=== PATIENT | male | born 1960 | race Caucasian/White ===

== ENCOUNTER 2025-08-27 15:05 | Outpatient (REF) | payer OTHER, SELFPAY ==
--- OUTSIDE RECORDS SUMMARY | 2024-12-22 04:30 | XMS_ITS ---
Author Organization [facility] [address] Address [address] [place] [address] Care Team Providers Care Pallet Sorter Name Role Phone PERI FAJARDO Unavailable [phone] Medications Medication SIG (Take, Route, Frequency, Duration) Notes Start Date End Date Status OLANZapine 15 MG 1 tablet Orally Once a day; Duration: 90 days Active Sertraline HCl 100 MG 1.5 tablet Oral On ce a day; Duration: 90 days Active Advair HFA 115-21 MCG/ACT USE 2 INHALATIONS TWICE A DAY Active Trelegy Ellipta 200-62.5-25 MCG/ACT USE 1 INHALATION ORALLY DAILY; Duration: 90 Active OLANZapine 15 MG TAKE 1 TABLET ONCE D AILY; Duration: 90 Active Atorvastatin Calcium 40 MG 1 tablet Orally Once a day; Duration: 90 days Active Mounjaro 2.5 MG/0.5ML as directed Subcut aneous weekly; Duration: 30 days Active Permethrin 5 % 1 application, Massa ge the cream into the skin from the head to the soles of the feet, paying special attention to creases in the skin, hands, feet, between fingers and toes, underarms, and groin. Externally once; Duration: 1 days 12/05/2023 Not-Taking hydrOXYzine HCl 25 MG 1 tablet as needed for pruritis Orally three times a day; Duration: 10 days 12/05/2023 Not-Taking Sertraline HCl 100 MG TAKE 1 AND 1/2 TAB LETS ONCEDAILY; Duration: 90 Active Atorvastatin Calcium 40 MG TAKE 1 TABLET ONCE DAILY; Duration: 90 Active Vitamin B Complex - TAKE 1 TABLET BY FRANKY TH EVERY DAY FOR 90 DAYS; Duration: 90 Active Ozempic (1 MG/DOSE) 4 MG/3ML INJECT 1 MG SUBCUTANEOUSLY WEEKLY 30 DAYS; Duration: 30 Not-Taking Albuterol Sulfate HFA 108 (90 Base) MCG/ACT USE 1 INHALATION EVERY 4 HOURS NEEDED Active Albuterol Sulfate HFA 108 (90 Base) MCG/ACT 1 puff as needed shortness of breath/wheezing Inhalation every 4 hrs; Duration: 30 days 02/17/2024 Active ZyrTEC Allergy 10 MG 1 tablet Orally Onc e a day Not-Taking Flonase Allergy Relief 50 MCG/ACT 1 spray in each nostril Nasally Once a day Not-Taking Meloxicam 15 MG 1 tablet Orally Once a day; Duration: 21 day(s) Not-Larry ing Atorvastatin Calcium 10 mg TAKE 1 TABLET DAILY Active Social History Sex Assigned At : Social History Observation Description Sex Assigned At Male Encounters Encounter Location Date Provider Diagnosis [facility] [address] [place] [id number] 12/22/2024 PERI FAJARDO Hyperlipidemia, unspecified E78.5 ; Chronic obstructive pulmonary disease, unspecified J44.9 ; Nicotine dependence, unspecified, uncomplicated F17.200 ; Schizoaffective disorder, depressive type F25.1 ; Right lumbar radiculitis M54.16 and Right foot drop M21.371 Assessments Encounter Date Diagnosis (ICD Code) Assessment Notes Treatment Notes Treatment Clinical Notes Section Notes 12/22/2024 Hyperlipidemia, unspecified (ICD-10 - E78.5) Acute Concerns/Problem List: 12/22/2024 Overall he is well, Low-dose CT 05/2024 unremarkable Annual surveillance through [facility] lung cancer program no desire to quit still searching for Psych provider Stable on current medication regimen and we will help him out if he is in a pinch in terms of medication management temporarily Colorectal screening was completed this year, 5 yr surveilance Of note, some information is being carried forward from prior records for informational purposes only and is being cited so that efficiency, safety and quality of the patient's care is not compromised This note was prepared using voice recognition software and direct typing Please excuse inadvertent yard assistant or typing errors, or uncorrected word substitutions Although every attempt has been made by the provider to proofread this document, occasional misspellings and typographical errors may still be present Due to the previous pandemic, and the use of personal protective equipment (PPE) This may decrease voice recognition accuracy Inadvertent yard assistant errors may occur 12/22/2024 Chronic obstructive pulmonary disease, unspecified (ICD-10 - J44.9) Acute Concerns/Problem List: 12/22/2024 Overall he is well, Low-dose CT 05/2024 unremarkable Annual surveillance through [facility] lung cancer program no desire to quit still searching for Psych provider Stable on current medication regimen and we will help him out if he is in a pinch in terms of medication management temporarily Colorectal screening was completed this year, 5 yr surveilance Of note, some information is being carried forward from prior records for informational purposes only and is being cited so that efficiency, safety and quality of the patient's care is not compromised This note was prepared using voice recognition software and direct typing Please excuse inadvertent yard assistant or typing errors, or uncorrected word substitutions Although every attempt has been made by the provider to proofread this document, occasional misspellings and typographical errors may still be present Due to the previous pandemic, and the use of personal protective equipment (PPE) This may decrease voice recognition accuracy Inadvertent yard assistant errors may occur 12/22/2024 Nicotine dependence, unspecified, uncomplicated (ICD-10 - F17.200) Acute Concerns/Problem List: 12/22/2024 Overall he is well, Low-dose CT 05/2024 unremarkable Annual surveillance through [facility] lung cancer program no desire to quit still searching for Psych provider Stable on current medication regimen and we will help him out if he is in a pinch in terms of medication management temporarily Colorectal screening was completed this year, 5 yr surveilance Of note, some information is being carried forward from prior records for informational purposes only and is being cited so that efficiency, safety and quality of the patient's care is not compromised This note was prepared using voice recognition software and direct typing Please excuse inadvertent yard assistant or typing errors, or uncorrected word substitutions Although every attempt has been made by the provider to proofread this document, occasional misspellings and typographical errors may still be present Due to the previous pandemic, and the use of personal protective equipment (PPE) This may decrease voice recognition accuracy Inadvertent yard assistant errors may occur 12/22/2024 Schizoaffective disorder, depressive type (ICD-10 - F25.1) Acute Concerns/Problem List: 12/22/2024 Overall he is well, Low-dose CT 05/2024 unremarkable Annual surveillance through [facility] lung cancer program no desire to quit still searching for Psych provider Stable on current medication regimen and we will help him out if he is in a pinch in terms of medication management temporarily Colorectal screening was completed this year, 5 yr surveilance Of note, some information is being carried forward from prior records for informational purposes only and is being cited so that efficiency, safety and quality of the patient's care is not compromised This note was prepared using voice recognition software and direct typing Please excuse inadvertent yard assistant or typing errors, or uncorrected word substitutions Although every attempt has been made by the provider to proofread this document, occasional misspellings and typographical errors may still be present Due to the previous pandemic, and the use of personal protective equipment (PPE) This may decrease voice recognition accuracy Inadvertent yard assistant errors may occur 12/22/2024 Right lumbar radiculitis (ICD-10 - M54.16) Acute Concerns/Problem List: 12/22/2024 Overall he is well, Low-dose CT 05/2024 unremarkable Annual surveillance through [facility] lung cancer program no desire to quit still searching for Psych provider Stable on current medication regimen and we will help him out if he is in a pinch in terms of medication management temporarily Colorectal screening was completed this year, 5 yr surveilance Of note, some information is being carried forward from prior records for informational purposes only and is being cited so that efficiency, safety and quality of the patient's care is not compromised This note was prepared using voice recognition software and direct typing Please excuse inadvertent yard assistant or typing errors, or uncorrected word substitutions Although every attempt has been made by the provider to proofread this document, occasional misspellings and typographical errors may still be present Due to the previous pandemic, and the use of personal protective equipment (PPE) This may decrease voice recognition accuracy Inadvertent yard assistant errors may occur 12/22/2024 Right foot drop (ICD-10 - M21.371) Acute Concerns/Problem List: 12/22/2024 Overall he is well, Low-dose CT 05/2024 unremarkable Annual surveillance through [facility] lung cancer program no desire to quit still searching for Psych provider Stable on current medication regimen and we will help him out if he is in a pinch in terms of medication management temporarily Colorectal screening was completed this year, 5 yr surveilance Of note, some information is being carried forward from prior records for informational purposes only and is being cited so that efficiency, safety and quality of the patient's care is not compromised This note was prepared using voice recognition software and direct typing Please excuse inadvertent yard assistant or typing errors, or uncorrected word substitutions Although every attempt has been made by the provider to proofread this document, occasional misspellings and typographical errors may still be present Due to the previous pandemic, and the use of personal protective equipment (PPE) This may decrease voice recognition accuracy Inadvertent yard assistant errors may occur Plan Of Treatment Medication Medication Name Sig Start Date Stop Date Notes OLANZapine 15 MG 1 tablet Orally Once a day; Duration: 90 days Sertraline HCl 100 MG 1.5 tablet Oral On ce a day; Duration: 90 days Advair HFA 115-21 MCG/ACT USE 2 INHALATIONS TWICE A DAY Atorvastatin Calcium 40 MG 1 tablet Oral ly Once a day; Duration: 90 days Mounjaro 2.5 MG/0.5ML as directed Subcut aneous weekly; Duration: 30 days Next Appt Details Provider Name:PERI FAJARDO, 12/21/2025 08:30:00 AM, [address], [address], Progress Notes * CATHRYN PUCKETTDOB: 1 (65 yo M)Acc No.[id number]:12/22/2024 Progress Notes Patient: CATHRYN MESSER Provider: Popeye FAJARDO NP :1960 A ge:64 Y S ex:Male Date:12/22/2024 Address:[address] [place] [id number] Subjective: * Chief Complaints: * * HPI: C onstitutional: Patient is here for Chronic Disease Management follow-up visit Patient seen and examined. Full past medical history, social history, family history, allergies and current medications were reviewed and updated. Acute Concerns/Problem List: 12/22/2024 HCP Lisa [phone] He continues be looking for a psychiatrist Psychiatry conditions including depression, bipolar was chronically managed by psych Patient reports he is doing quite well and has a good mood and affect with no issues. Psychiatrist has since retired and will be taking over medication management in the interim now on sertraline/olanzipine Lipids managed on low dose statin, labs only review very slightly elevated triglycerides we discussed ASCVD risk He is still a current smoker, 3-4 cigs daily, overall smoking history it looks like 40+ years he had low dose chest CT done 05/2024, unremarakble, 1 yr surveilance @ [facility] he is s/p lumbar laminectomy with microdisectomy with [facility] 10/2021 back much improved He is not driving still his does all of the driving given his history of foot drop and lower extremity weakness Health maintenance COVID with 3 MRNA Vax Flu 2023 UTD, 07/2024 RSV, to get at pharm Colonoscopy 02/2024, [facility] Sam, 5 yr surveilance, prep wasnt optimal no fam hx of malignancy Comprehensive labs, April 2024 CBC is stable Hemoglobin A1c of 5.2 Electrolytes renal function LFTs are stable Total cholesterol 138, LDL 70, HDL 44, triglycerides 124 PSA 0.4 Vitamin B12 TSH 6.4, T4?, Previous TSH 3.9. * ROS: A ll Other Systems: Review of Systems (ROS) A ll others negative except those mentioned in HPI. * Medical History: * Medications: T aking Mounjaro 2.5 MG/0.5ML Solution Pen-injector as directed Subcutaneous weekly , Taking Atorvastatin Calcium 40 MG Tablet 1 tablet Orally Once a day , Taking Advair HFA 115-21 MCG/ACT Aerosol USE 2 INHALATIONS TWICE A DAY , Taking Atorvastatin Calcium 10 mg Tablet TAKE 1 TABLET DAILY , Taking Albuterol Sulfate HFA 108 (90 Base) MCG/ACT Aerosol Solution USE 1 INHALATION EVERY 4 HOURS NEEDED , Taking Albuterol Sulfate HFA 108 (90 Base) MCG/ACT Aerosol Solution 1 puff as needed shortness of breath/wheezing Inhalation every 4 hrs , Taking Vitamin B Complex - Tablet TAKE 1 TABLET BY MOUTH EVERY DAY FOR 90 DAYS , Taking Atorvastatin Calcium 40 MG Tablet TAKE 1 TABLET ONCE DAILY , Taking Sertraline HCl 100 MG Tablet TAKE 1 AND 1/2 TABLETS ONCEDAILY , Taking Trelegy Ellipta 200-62.5-25 MCG/ACT Aerosol Powder Breath Activated USE 1 INHALATION ORALLY DAILY , Taking OLANZapine 15 MG Tablet TAKE 1 TABLET ONCE DAILY , Not-Taking ZyrTEC Allergy 10 MG Tablet 1 tablet Orally Once a day , Not-Taking Flonase Allergy Relief 50 MCG/ACT Suspension 1 spray in each nostril Nasally Once a day , Not-Taking Meloxicam 15 MG Tablet 1 tablet Orally Once a day , Not-Taking Ozempic (1 MG/DOSE) 4 MG/3ML Solution Pen-injector INJECT 1 MG SUBCUTANEOUSLY WEEKLY 30 DAYS , Not-Taking Permethrin 5 % Cream 1 application, Massage the cream into the skin from the head to the soles of the feet, paying special attention to creases in the skin, hands, feet, between fingers and toes, underarms, and groin. Externally once , Not-Taking hydrOXYzine HCl 25 MG Tablet 1 tablet as needed for pruritis Orally three times a day Objective: * Vitals: * Examination: G eneral Examination: GENERAL APPEARANCE: i n no acute distress, well developed, well nourished. H EAD: n ormocephalic, atraumatic. E YES: p upils equal, round, reactive to light and accommodation. E ARS: n ormal. O RAL CAVITY: m ucosa moist. T HROAT: c lear. N YADY/THYROID: n yady supple, full range of motion, no cervical lymphadenopathy. S KIN: n o suspicious lesions, warm and dry. H EART: n o murmurs, regular rate and rhythm, S1, S2 normal. L UNGS: c lear to auscultation bilaterally. A BDOMEN: n ormal, bowel sounds present, soft, nontender, nondistended. E XTREMITIES: n o clubbing, cyanosis, or edema. N EUROLOGIC: n onfocal, motor strength normal upper and lower extremities, sensory exam intact. Assessment: * Assessment: 1. H yperlipidemia, unspecified - E78.5 2 . C hronic obstructive pulmonary disease, unspecified - J44.9 3 . N icotine dependence, unspecified, uncomplicated - F17.200 4 . S chizoaffective disorder, depressive type - F25.1 5. R ight lumbar radiculitis - M54.16 6 . R ight foot drop - M21.371? Acute Concerns/Problem List: 12/22/2024 Overall he is well, Low-dose CT 05/2024 unremarkable Annual surveillance through [facility] lung cancer program no desire to quit still searching for Psych provider Stable on current medication regimen and we will help him out if he is in a pinch in terms of medication management temporarily Colorectal screening was completed this year, 5 yr surveilance Of note, some information is being carried forward from prior records for informational purposes only and is being cited so that efficiency, safety and quality of the patient's care is not compromised This note was prepared using voice recognition software and direct typing Please excuse inadvertent yard assistant or typing errors, or uncorrected word substitutions Although every attempt has been made by the provider to proofread this document, occasional misspellings and typographical errors may still be present Due to the previous pandemic, and the use of personal protective equipment (PPE) This may decrease voice recognition accuracy Inadvertent yard assistant errors may occur. Plan: * Treatment: 2. C hronic obstructive pulmonary disease, unspecified Start Mounjaro Solution Pen-injector, 2.5 MG/0.5ML, as directed, Subcutaneous, weekly, 30 days, 4 Pen Needle, Refills 6; S tart Atorvastatin Calcium Tablet, 40 MG, 1 tablet, Orally, Once a day, 90 days, 90 Tablet, Refills 3; R efill Sertraline HCl Tablet, 100 MG, 1.5 tablet, Oral, Once a day, 90 days, 135 Tablet, Refills 3; R efill OLANZapine Tablet, 15 MG, 1 tablet, Orally, Once a day, 90 days, 90 Tablet, Refills 3. * Procedure Codes: 9 9199 NO SHOW OFFICE VISIT * Images: Billing Information: * Visit Code: * Procedure Codes: 75157 NO SHOW OFFICE VISIT. Care Plan Details* * Electronic signature of SABAS FAJARDO on 08/27/2025 at 04:43 PM EDT Sign off status: Pending * Provider: Popeye FAJARDO NP Date: 0 12/22/2024 Generated for Scott senior/Luis Alberto/Fredy on: 1 04:43 PM EDT History and Physical Notes * HPI (History of Present Illness) Category Sub-Category Detail Notes Category Not es Constitutional Patient is here for Chronic Disease Management follow-up visit Patient seen and examined. Full past medical history, social history, family history, allergies and current medications were reviewed and updated. Acute Concerns/Problem List: 12/22/2024 HCP Lisa [phone] He continues be looking for a psychiatrist Psychiatry conditions including depression, bipolar was chronically managed by psych Patient reports he is doing quite well and has a good mood and affect with no issues. Psychiatrist has since retired and will be taking over medication management in the interim now on sertraline/olanzipine Lipids managed on low dose statin, labs only review very slightly elevated triglycerides we discussed ASCVD risk He is still a current smoker, 3-4 cigs daily, overall smoking history it looks like 40+ years he had low dose chest CT done 05/2024, unremarakble, 1 yr surveilance @ [facility] he is s/p lumbar laminectomy with microdisectomy with [facility] 10/2021 back much improved He is not driving still his does all of the driving given his history of foot drop and lower extremity weakness Health maintenance COVID with 3 MRNA Vax Flu 2023 UTD, 07/2024 RSV, to get at pharm Colonoscopy 02/2024, [facility] Sam, 5 yr surveilance, prep wasnt optimal no fam hx of malignancy Comprehensive labs, April 2024 CBC is stable Hemoglobin A1c of 5.2 Electrolytes renal function LFTs are stable Total cholesterol 138, LDL 70, HDL 44, triglycerides 124 PSA 0.4 Vitamin B12 TSH 6.4, T4?, Previous TSH 3.9 Examination Category Sub-Category Detail Notes Category Not es General Examination GENERAL APPEARANCE: in no ac native distress, well developed, well nourished HEAD: normocephalic, atrau matic EYES: pupils equal, round, reactive to light and accommodation EARS: normal THROAT: clear NECK/THYROID: neck supple, full ra nge of motion, no cervical lymphadenopathy HEART: no murmurs, regular rate and rhythm, S1, S2 normal LUNGS: clear to auscultatio n bilaterally ABDOMEN: normal, bowel sounds present, soft, nontender, nondistended NEUROLOGIC: nonfocal, motor stre ngth normal upper and lower extremities, sensory exam intact SKIN: no suspicious lesion s, warm and dry EXTREMITIES: no clubbing, cyanosi s, or edema ORAL CAVITY: mucosa moist
--- OUTSIDE RECORDS SUMMARY | 2025-05-28 05:30 | XMS_ITS ---
Author Organization [facility] [address] Address [address] [place] [address] Care Team Providers Care Blanket Inspector Name Role Phone PERI FAJARDO Unavailable [phone] MAYRASHANNON FOOTE Unavailable [phone] Medications Medication SIG (Take, Route, Frequency, Duration) Notes Start Date End Date Status Atorvastatin Calcium 10 mg TAKE 1 TABLET DAILY Not-Taki ng Meloxicam 15 MG 1 tablet Orally Once a day; Duration: 21 day(s) Not-Larry ing Ozempic (1 MG/DOSE) 4 MG/3ML INJECT 1 MG SUBCUTANEOUSLY WEEKLY 30 DAYS; Duration: 30 Not-Taking Permethrin 5 % 1 application, Massa ge [...] a day; Duration: 10 days 12/05/2023 Not-Taking OLANZapine 15 MG TAKE 1 TABLET ONCE D AILY; Duration: 90 Active Atorvastatin Calcium 40 MG TAKE 1 TABLET BY MOUTH EVERY DAY; Duration: 90 Active Albuterol Sulfate HFA 108 (90 Base) MCG/ACT INHALE 1 PUFF EVERY 4 HOURS NEEDED FOR WHEEZE FOR SHORTNESS OF BREATH; Duration: 30 Active ZyrTEC Allergy 10 MG 1 tablet Orally Onc e a day Active Flonase Allergy Relief 50 MCG/ACT 1 spray in each nostril Nasally Once a day Active Trelegy Ellipta 200-62.5-25 MCG/ACT USE 1 INHALATION ORALLY DAILY; Duration: 90 Active Advair HFA 115-21 MCG/ACT USE 2 INHALATIONS TWICE A DAY Active Vitamin E Active Vitamin B Complex - TAKE 1 TABLET BY FRANKY TH EVERY DAY FOR 90 DAYS; Duration: 90 Active Sertraline HCl 100 MG TAKE 1 AND 1/2 TAB LETS ONCEDAILY; Duration: 90 Active Mounjaro 2.5 MG/0.5ML as directed Subcut aneous weekly; Duration: 30 days Active Atorvastatin Calcium 40 MG 1 tablet Orally Once a day; Duration: 90 days Active Sertraline HCl 100 MG 1.5 tablet Oral On ce a day; Duration: 90 days Active OLANZapine 15 MG 1 tablet Orally Once a day; Duration: 90 days Active Social History Sex Assigned At : Social History Observation Description Sex Assigned At Male Encounters Encounter Location Date Provider Diagnosis [facility] [address] [facility] [address] [place] [address] 05/28/2025 SHANNON HOPSON Plan Of Treatment Next Appt Details Provider Name:PERI FAJARDO, 12/21/2025 08:30:00 AM, [address] [facility], [facility] [address], [place], [address], Progress Notes * CATHRYN PUCKETTDOB: 1 (65 yo M)Acc No.[id number]:05/28/2025 CPE Patient: CATHRYN MESSER Provider: Breanne HOPSON :1960 A ge:64 Y S ex:Male Date:05/28/2025 Address:[address] [place], [place] [id number] Subjective: * Chief Complaints: * * Medical History: * Medications: T aking Mounjaro 2.5 MG/0.5ML Solution Pen-injector as directed Subcutaneous weekly , Taking Atorvastatin Calcium 40 MG Tablet 1 tablet Orally Once a day , Taking Sertraline HCl 100 MG Tablet 1.5 tablet Oral Once a day , Taking OLANZapine 15 MG Tablet 1 tablet Orally Once a day , Taking Advair HFA 115-21 MCG/ACT Aerosol USE 2 INHALATIONS TWICE A DAY , Taking Vitamin E , Taking Vitamin B Complex - Tablet TAKE 1 TABLET BY MOUTH EVERY DAY FOR 90 DAYS , Taking Sertraline HCl 100 MG Tablet TAKE 1 AND 1/2 TABLETS ONCEDAILY , Taking Trelegy Ellipta 200-62.5-25 MCG/ACT Aerosol Powder Breath Activated USE 1 INHALATION ORALLY DAILY , Taking OLANZapine 15 MG Tablet TAKE 1 TABLET ONCE DAILY , Taking Atorvastatin Calcium 40 MG Tablet TAKE 1 TABLET BY MOUTH EVERY DAY , Taking Albuterol Sulfate HFA 108 (90 Base) MCG/ACT Aerosol Solution INHALE 1 PUFF EVERY 4 HOURS NEEDED FOR WHEEZE FOR SHORTNESS OF BREATH , Taking ZyrTEC Allergy 10 MG Tablet 1 tablet Orally Once a day , Taking Flonase Allergy Relief 50 MCG/ACT Suspension 1 spray in each nostril Nasally Once a day , Not- Taking Atorvastatin Calcium 10 mg Tablet TAKE 1 TABLET DAILY , Not-Taking Meloxicam 15 MG Tablet 1 [...] three times a day Objective: * Vitals: Assessment: Plan: * Treatment: * Images: Billing Information: * Visit Code: * Procedure Codes: Care Plan Details* * Electronic signature of YUNIER HOPSON PA-C, [id number] on 08/27/2025 at 04:43 PM EDT Sign off status: Pending * Provider: Breanne HOPSON Date: 05/28/2025 Generated for Scott senior/Luis Alberto/Fredy on: 04:43 PM EDT
--- OUTSIDE RECORDS SUMMARY | 2025-08-25 11:30 | XMS_ITS ---
Author Organization [facility] Address [address] [place] [address] Care Team Providers Care Cranberry Grower Name Role Phone PERI FAJARDO Unavailable [phone] Allergies No Known Allergies REASON FOR VISIT pt is here for f/u visit with no acute concerns or issues Medications Medication SIG (Take, Route, Frequency, Duration) Notes Start Date End Date Status hydrOXYzine HCl 25 MG 1 tablet as needed for pruritis Orally three times a day; Duration: 10 days 12/05/2023 Not-Taking Permethrin 5 % 1 application, Massa ge the cream into the skin from the head to the soles of the feet, paying special attention to creases in the skin, hands, feet, between fingers and toes, underarms, and groin. Externally once; Duration: 1 days 12/05/2023 Not-Taking Atorvastatin Calcium 40 MG 1 tablet Orally Once a day; Duration: 90 days Active Sertraline HCl 100 MG 1.5 tablet Oral On ce a day; Duration: 90 days Active Mounjaro 2.5 MG/0.5ML as directed Subcut aneous weekly; Duration: 30 days Active Ozempic (1 MG/DOSE) 4 MG/3ML INJECT 1 MG SUBCUTANEOUSLY WEEKLY 30 DAYS; Duration: 30 Not-Taking Meloxicam 15 MG 1 tablet Orally Once a day; Duration: 21 day(s) Not-Larry ing Atorvastatin Calcium 10 mg TAKE 1 TABLET DAILY Not-Taki ng ZyrTEC Allergy 10 MG 1 tablet Orally Onc e a day Not-Taking Mounjaro 2.5 MG/0.5ML inject 2 Subcutane ous once a week; Duration: 30 days 06/14/2025 Active Albuterol Sulfate HFA 108 (90 Base) MCG/ACT INHALE 1 PUFF EVERY 4 HOURS NEEDED FOR WHEEZE FOR SHORTNESS OF BREATH; Duration: 30 Active Trelegy Ellipta 200-62.5-25 MCG/ACT USE 1 INHALATION ORALLY DAILY; Duration: 90 Active Vitamin B Complex - TAKE 1 TABLET BY FRANKY TH EVERY DAY FOR 90 DAYS; Duration: 90 Active Vitamin E Active Flonase Allergy Relief 50 MCG/ACT 1 spray in each nostril Nasally Once a day Active OLANZapine 15 MG TAKE 1 TABLET ONCE D AILY; Duration: 90 Active Sertraline HCl 100 MG TAKE 1 AND 1/2 TAB LETS ONCEDAILY; Duration: 90 Active Advair HFA 115-21 MCG/ACT USE 2 INHALATIONS TWICE A DAY Active Famotidine 20 MG 1 tablet at bedtime as needed Orally Once a day Active Atorvastatin Calcium 40 MG TAKE 1 TABLET BY MOUTH EVERY DAY; Duration: 90 Active OLANZapine 15 MG 1 tablet Orally Once a day; Duration: 90 days Active Social History Tobacco Use: Social History Observation Description Date Details (start date - stop date) Current Smoker NA - NA Sex Assigned At : Social History Observation Description Sex Assigned At Male Tobacco Use/Smoking Question Answer Notes Are you a current smoker How often do you smoke cigarettes? every day How many cigarettes a day do you smoke? - Vital Signs Blood pressure systolic 132 mm Hg 08/25/20 25 Blood pressure diastolic 84 mm Hg 025 Heart Rate 93 /min 2025 Height 66 in 2025 Weight 151 lbs 2025 BMI 24.37 kg/m2 2025 Oximetry 97 % 2025 Encounters Encounter Location Date Provider Diagnosis [facility] [address] [address] 2025 PERI FAJARDO Hyperlipidemia, unspecified E78.5 ; Chronic obstructive pulmonary disease, unspecified J44.9 ; Schizoaffective disorder, depressive type F25.1 ; Nicotine dependence, unspecified, uncomplicated F17.200 ; Right lumbar radiculitis M54.16 ; Carpal tunnel syndrome of left wrist G56.02 ; Vitamin B12 deficiency anemia, unspecified D51.9 ; Abnormal TSH R79.89 and Encounter for examination of blood pressure without abnormal findings Z01.30 Assessments Encounter Date Diagnosis (ICD Code) Assessment Notes Treatment Notes Treatment Clinical Notes Section Notes 2025 Hyperlipidemia, unspecified (ICD-10 - E78.5) Acute Concerns/Problem List: 2025 Chronic conditions are stable mental health is stable Low-dose CT 05/2025 unremarkable Annual surveillance through [facility] lung cancer program no desire to quit smoking still searching for Psych provider Stable on current medication regimen and We are prescribing these medicines in the interim Colorectal screening was completed this year, 5 yr surveilance Of note, some information is being carried forward from prior records for informational purposes only and is being cited so that efficiency, safety and quality of the patient's care is not compromised This note was prepared using voice recognition software and direct typing Please excuse inadvertent information architect or typing errors, or uncorrected word substitutions Although every attempt has been made by the provider to proofread this document, occasional misspellings and typographical errors may still be present Due to the previous pandemic, and the use of personal protective equipment (PPE) This may decrease voice recognition accuracy Inadvertent information architect errors may occur 2025 Chronic obstructive pulmonary disease, unspecified (ICD-10 - J44.9) Acute Concerns/Problem List: 2025 Chronic conditions are stable mental health is stable Low-dose CT 05/2025 unremarkable Annual surveillance through [facility] lung cancer program no desire to quit smoking still searching for Psych provider Stable on current medication regimen and We are prescribing these medicines in the interim Colorectal screening was completed this year, 5 yr surveilance Of note, some information is being carried forward from prior records for informational purposes only and is being cited so that efficiency, safety and quality of the patient's care is not compromised This note was prepared using voice recognition software and direct typing Please excuse inadvertent information architect or typing errors, or uncorrected word substitutions Although every attempt has been made by the provider to proofread this document, occasional misspellings and typographical errors may still be present Due to the previous pandemic, and the use of personal protective equipment (PPE) This may decrease voice recognition accuracy Inadvertent information architect errors may occur 2025 Schizoaffective disorder, depressive type (ICD-10 - F25.1) Acute Concerns/Problem List: 2025 Chronic conditions are stable mental health is stable Low-dose CT 05/2025 unremarkable Annual surveillance through [facility] lung cancer program no desire to quit smoking still searching for Psych provider Stable on current medication regimen and We are prescribing these medicines in the interim Colorectal screening was completed this year, 5 yr surveilance Of note, some information is being carried forward from prior records for informational purposes only and is being cited so that efficiency, safety and quality of the patient's care is not compromised This note was prepared using voice recognition software and direct typing Please excuse inadvertent information architect or typing errors, or uncorrected word substitutions Although every attempt has been made by the provider to proofread this document, occasional misspellings and typographical errors may still be present Due to the previous pandemic, and the use of personal protective equipment (PPE) This may decrease voice recognition accuracy Inadvertent information architect errors may occur 2025 Nicotine dependence, unspecified, uncomplicated (ICD-10 - F17.200) Acute Concerns/Problem List: 2025 Chronic conditions are stable mental health is stable Low-dose CT 05/2025 unremarkable Annual surveillance through [facility] lung cancer program no desire to quit smoking still searching for Psych provider Stable on current medication regimen and We are prescribing these medicines in the interim Colorectal screening was completed this year, 5 yr surveilance Of note, some information is being carried forward from prior records for informational purposes only and is being cited so that efficiency, safety and quality of the patient's care is not compromised This note was prepared using voice recognition software and direct typing Please excuse inadvertent information architect or typing errors, or uncorrected word substitutions Although every attempt has been made by the provider to proofread this document, occasional misspellings and typographical errors may still be present Due to the previous pandemic, and the use of personal protective equipment (PPE) This may decrease voice recognition accuracy Inadvertent information architect errors may occur 2025 Right lumbar radiculitis (ICD-10 - M54.16) Acute Concerns/Problem List: 2025 Chronic conditions are stable mental health is stable Low-dose CT 05/2025 unremarkable Annual surveillance through [facility] lung cancer program no desire to quit smoking still searching for Psych provider Stable on current medication regimen and We are prescribing these medicines in the interim Colorectal screening was completed this year, 5 yr surveilance Of note, some information is being carried forward from prior records for informational purposes only and is being cited so that efficiency, safety and quality of the patient's care is not compromised This note was prepared using voice recognition software and direct typing Please excuse inadvertent information architect or typing errors, or uncorrected word substitutions Although every attempt has been made by the provider to proofread this document, occasional misspellings and typographical errors may still be present Due to the previous pandemic, and the use of personal protective equipment (PPE) This may decrease voice recognition accuracy Inadvertent information architect errors may occur 2025 Carpal tunnel syndrome of left wrist (ICD-10 - G56.02) Acute Concerns/Problem List: 2025 Chronic conditions are stable mental health is stable Low-dose CT 05/2025 unremarkable Annual surveillance through [facility] lung cancer program no desire to quit smoking still searching for Psych provider Stable on current medication regimen and We are prescribing these medicines in the interim Colorectal screening was completed this year, 5 yr surveilance Of note, some information is being carried forward from prior records for informational purposes only and is being cited so that efficiency, safety and quality of the patient's care is not compromised This note was prepared using voice recognition software and direct typing Please excuse inadvertent information architect or typing errors, or uncorrected word substitutions Although every attempt has been made by the provider to proofread this document, occasional misspellings and typographical errors may still be present Due to the previous pandemic, and the use of personal protective equipment (PPE) This may decrease voice recognition accuracy Inadvertent information architect errors may occur 2025 Vitamin B12 deficiency anemia, unspecified (ICD-10 - D51.9) Acute Concerns/Problem List: 2025 Chronic conditions are stable mental health is stable Low-dose CT 05/2025 unremarkable Annual surveillance through [facility] lung cancer program no desire to quit smoking still searching for Psych provider Stable on current medication regimen and We are prescribing these medicines in the interim Colorectal screening was completed this year, 5 yr surveilance Of note, some information is being carried forward from prior records for informational purposes only and is being cited so that efficiency, safety and quality of the patient's care is not compromised This note was prepared using voice recognition software and direct typing Please excuse inadvertent information architect or typing errors, or uncorrected word substitutions Although every attempt has been made by the provider to proofread this document, occasional misspellings and typographical errors may still be present Due to the previous pandemic, and the use of personal protective equipment (PPE) This may decrease voice recognition accuracy Inadvertent information architect errors may occur 2025 Abnormal TSH (ICD-10 - R79.89) Acute Concerns/Problem List: 2025 Chronic conditions are stable mental health is stable Low-dose CT 05/2025 unremarkable Annual surveillance through [facility] lung cancer program no desire to quit smoking still searching for Psych provider Stable on current medication regimen and We are prescribing these medicines in the interim Colorectal screening was completed this year, 5 yr surveilance Of note, some information is being carried forward from prior records for informational purposes only and is being cited so that efficiency, safety and quality of the patient's care is not compromised This note was prepared using voice recognition software and direct typing Please excuse inadvertent information architect or typing errors, or uncorrected word substitutions Although every attempt has been made by the provider to proofread this document, occasional misspellings and typographical errors may still be present Due to the previous pandemic, and the use of personal protective equipment (PPE) This may decrease voice recognition accuracy Inadvertent information architect errors may occur 2025 Encounter for examination of blood pressure without abnormal findings (ICD-10 - Z01.30) Acute Concerns/Problem List: 2025 Chronic conditions are stable mental health is stable Low-dose CT 05/2025 unremarkable Annual surveillance through [facility] lung cancer program no desire to quit smoking still searching for Psych provider Stable on current medication regimen and We are prescribing these medicines in the interim Colorectal screening was completed this year, 5 yr surveilance Of note, some information is being carried forward from prior records for informational purposes only and is being cited so that efficiency, safety and quality of the patient's care is not compromised This note was prepared using voice recognition software and direct typing Please excuse inadvertent information architect or typing errors, or uncorrected word substitutions Although every attempt has been made by the provider to proofread this document, occasional misspellings and typographical errors may still be present Due to the previous pandemic, and the use of personal protective equipment (PPE) This may decrease voice recognition accuracy Inadvertent information architect errors may occur Plan Of Treatment Medication Medication Name Sig Start Date Stop Date Notes Atorvastatin Calcium 40 MG 1 tablet Oral ly Once a day; Duration: 90 days Sertraline HCl 100 MG 1.5 tablet Oral On ce a day; Duration: 90 days Mounjaro 2.5 MG/0.5ML as directed Subcut aneous weekly; Duration: 30 days Advair HFA 115-21 MCG/ACT USE 2 INHALATIONS TWICE A DAY OLANZapine 15 MG 1 tablet Orally Once a day; Duration: 90 days Next Appt Details Provider Name:PERI FAJARDO, 12/21/2025 08:30:00 AM, [address], [address], [place], [address], Progress Notes * CATHRYN PUCKETTDOB: (65 yo M)Acc No.[id number]:[id number] Progress Notes Patient: CATHRYN MESSER Provider: Popeye FAJARDO NP :1960 A ge:65 Y S ex:Male Date:2025 Address:[address] [place], [place] [id number] Subjective: * Chief Complaints: * 1 . Pt is here for f/u visit with no acute concerns or issues. * HPI: C onstitutional: Patient is here today for a Chronic Disease Management Follow-up Visit Patient seen and examined. Full past medical history, social history, family history, allergies and current medications were reviewed and updated. Acute Concerns/Problem List: 2025 HCP Lisa [phone] Cathryn is overall doing quite well with no acute concerns today Hx of depression, bipolar was chronically managed by [facility] mental health stable, good mood and affect with no issues. Psychiatrist (Sharlene Mazariegos) has since retired and i agreed to take over med management in the interim now on sertraline/olanzipine Lipids managed on low dose statin, labs only review very slightly elevated triglycerides we discussed ASCVD risk He is still a current smoker, 3-4 cigs daily, overall smoking history it looks like 40+ years he had low dose chest CT done 05/2025, unremarakble, 1 yr surveilance @ [facility] he is s/p lumbar laminectomy with microdisectomy with [facility] 10/2021 back much improved He is not driving still his does all of the driving given his history of foot drop and lower extremity weakness Patient wants to loose weight. Health maintenance COVID with 3 MRNA Vax Flu 2024 UTD RSV, 07/2024 Colonoscopy 02/2024, GI [facility], 5 yr surveilance, prep wasnt optimal no fam hx of malignancy Comprehensive labs April 2025 CBC mostly stable Renal function electrolytes and LFTs are stable Total cholesterol 147, LDL 88, HDL 41, triglycerides 92 Vitamin D 16 Free T4, 1.07 Free T3, 317 TSH 4.16 Hemoglobin A1c of 5.8 PSA 0.36 Vitamin B12 385 UA unremarkable. * ROS: A ll Other Systems: Review of Systems (ROS) A ll others negative except those mentioned in HPI. * Medical History: D epression, Seasonal allergies, Hyperlipidemia. * Surgical History: D enies Past Surgical History. * Hospitalization/Major Diagno stic Procedure: D enies Past Hospitalization. * Family History: F ather: . M other: alive. 1 brother(s) , 2 sister(s) . 1 son(s) . . * Social History: T obacco Use: T obacco Use/Smoking A re you a c urrent smoker, H ow often do you smoke cigarettes? e very day, H ow many cigarettes a day do you smoke? 2 -30. * Medications: T aking Sertraline HCl 100 MG Tablet TAKE 1 AND 1/2 TABLETS ONCEDAILY , Taking OLANZapine 15 MG Tablet TAKE 1 TABLET ONCE DAILY , Taking Atorvastatin Calcium 40 MG Tablet TAKE 1 TABLET BY MOUTH EVERY DAY , Taking Mounjaro 2.5 MG/0.5ML Solution Pen-injector as directed Subcutaneous weekly , Taking Atorvastatin Calcium 40 MG Tablet 1 tablet Orally Once a day , Taking Sertraline HCl 100 MG Tablet 1.5 tablet Oral Once a day , Taking OLANZapine 15 MG Tablet 1 tablet Orally Once a day , Taking Advair HFA 115-21 MCG/ACT Aerosol USE 2 INHALATIONS TWICE A DAY , Taking Famotidine 20 MG Tablet 1 tablet at bedtime as needed Orally Once a day , Taking Vitamin E , Taking Vitamin B Complex - Tablet TAKE 1 TABLET BY MOUTH EVERY DAY FOR 90 DAYS , Taking Trelegy Ellipta 200-62.5-25 MCG/ACT Aerosol Powder Breath Activated USE 1 INHALATION ORALLY DAILY , Taking Albuterol Sulfate HFA 108 (90 Base) MCG/ACT Aerosol Solution INHALE 1 PUFF EVERY 4 HOURS NEEDED FOR WHEEZE FOR SHORTNESS OF BREATH , Taking Flonase Allergy Relief 50 MCG/ACT Suspension 1 spray in each nostril Nasally Once a day , Taking Mounjaro 2.5 MG/0.5ML Solution Auto-injector inject 2 Subcutaneous once a week , Not-Taking ZyrTEC Allergy 10 MG Tablet 1 tablet Orally Once a day , Not-Taking Atorvastatin Calcium 10 mg Tablet TAKE 1 [...] for pruritis Orally three times a day , Medication List reviewed and reconciled with the patient * Allergies: N .K.D.A. Objective: * Vitals: H R:93/min, BP:132/84mm Hg, Wt:151lbs, BMI:24.37Index, Ht: 66 in, Oxygen sat %:97%. * Examination: G eneral Examination: GENERAL APPEARANCE: i n no acute distress, well developed, well nourished. H EAD: n ormocephalic, atraumatic. E YES: p upils equal, round, reactive to light and accommodation. E ARS: n ormal. O RAL CAVITY: m ucosa moist. T HROAT: c lear. N YINKA/THYROID: n yinka supple, full range of motion, no cervical lymphadenopathy. S KIN: n o suspicious lesions, warm and dry. H EART: n o murmurs, regular rate and rhythm, S1, S2 normal. L UNGS: c lear to auscultation bilaterally. A BDOMEN: n ormal, bowel sounds present, soft, nontender, nondistended. M USCULOSKELETAL: l eft elbow tenderness going down to fingers, Phalens test is positive for Carpal tunnel syndrome, Elbow flexion pain. E XTREMITIES: n o clubbing, cyanosis, or edema. N EUROLOGIC: n onfocal, motor strength normal upper and lower extremities, sensory exam intact. Assessment: * Assessment: 1. H yperlipidemia, unspecified - E78.5 2 . C hronic obstructive pulmonary disease, unspecified - J44.9 3 . S chizoaffective disorder, depressive type - F25.1 4 . N icotine dependence, unspecified, uncomplicated - F17.200 5. R ight lumbar radiculitis - M54.16 6 . C arpal tunnel syndrome of left wrist - G56.02 7 . V itamin B12 deficiency anemia, unspecified - D51.9 ? 8 . A bnormal TSH - R79.89 9 . E ncounter for examination of blood pressure without abnormal findings - Z01.30 Acute Concerns/Problem List: 2025 Chronic conditions are stable mental health is stable Low-dose CT 05/2025 unremarkable Annual surveillance through [facility] lung cancer program no desire to quit smoking still searching for Psych provider Stable on current medication regimen and We are prescribing these medicines in the interim Colorectal screening was completed this year, 5 yr surveilance Of note, some information is being carried forward from prior records for informational purposes only and is being cited so that efficiency, safety and quality of the patient's care is not compromised This note was prepared using voice recognition software and direct typing Please excuse inadvertent information architect or typing errors, or uncorrected word substitutions Although every attempt has been made by the provider to proofread this document, occasional misspellings and typographical errors may still be present Due to the previous pandemic, and the use of personal protective equipment (PPE) This may decrease voice recognition accuracy Inadvertent information architect errors may occur Plan: * Treatment: 2. C hronic obstructive [...] 90 Tablet, Refills 3. * Procedure Codes: 3 079F DIAST BP 80-89 MM HG, 3075F SYST BP GE 130 - 139MM HG * Images: Billing Information: * Visit Code: 60707 Office Visit, Est Pt., Level 4. Modifiers: SA * Procedure Codes: 3079F DIAST BP 80-89 MM HG. 3075F SYST BP GE 130 - 139MM HG. Care Plan Details* * Sign off status: Completed true * Provider: Popeye FAJARDO, TRACTOR TRAILER MECHANIC Date: Generated for Scott senior/Luis Alberto/eTneda on: 04:43 PM EDT History and Physical Notes * HPI (History of Present Illness) Category Sub-Category Detail Notes Category Not es Constitutional Patient is here today for a Chronic Disease Management Follow-up Visit Patient seen and examined. Full past medical history, social history, family history, allergies and current medications were reviewed and updated. Acute Concerns/Problem List: 2025 HCP Lisa [phone] Cathryn is overall doing quite well with no acute concerns today Hx of depression, bipolar was chronically managed by [facility] mental health stable, good mood and affect with no issues. Psychiatrist (Sharlene Mazariegos) has since retired and i agreed to take over med management in the interim now on sertraline/olanzipine Lipids managed on low dose statin, labs only review very slightly elevated triglycerides we discussed ASCVD risk He is still a current smoker, 3-4 cigs daily, overall smoking history it looks like 40+ years he had low dose chest CT done 05/2025, unremarakble, 1 yr surveilance @ [facility] he is s/p lumbar laminectomy with microdisectomy with [facility] 10/2021 back much improved He is not driving still his does all of the driving given his history of foot drop and lower extremity weakness Patient wants to loose weight. Health maintenance COVID with 3 MRNA Vax Flu 2024 UTD RSV, 07/2024 Colonoscopy 02/2024, GI [facility] Sam, 5 yr surveilance, prep wasnt optimal no fam hx of malignancy Comprehensive labs April 2025 CBC mostly stable Renal function electrolytes and LFTs are stable Total cholesterol 147, LDL 88, HDL 41, triglycerides 92 Vitamin D 16 Free T4, 1.07 Free T3, 317 TSH 4.16 Hemoglobin A1c of 5.8 PSA 0.36 Vitamin B12 385 UA unremarkable Examination Category Sub-Category Detail Notes Category Not es General Examination GENERAL APPEARANCE: in no ac migue distress, well developed, well nourished HEAD: normocephalic, [...] EXTREMITIES: no clubbing, cyanosi s, or edema MUSCULOSKELETAL: left elbow tendernes s going down to fingers, Phalens test is positive for Carpal tunnel syndrome, Elbow flexion pain ORAL CAVITY: mucosa moist
--- NOTE | 2025-08-27 15:09 | EMG_ITS ---
Chief complaint: Tingling sensation from elbow to forearm, with numbness on his hand but more on the dorsal aspect. Palpable, visible ganglion cyst on left radial wrist. Reason for referral: Evaluate for Carpal Tunnel Syndrome or ulnar neuropathy Referred by: Lev STARK Procedure done: Left upper extremity NCS/EMG Precautions and/or limitations: None The limb temperature was monitored continuously and remained between 32-36 degrees C during the performance of the NCS. Nerve Conduction Studies Anti Sensory Summary Table ?Stim Site NR Onset (ms) Norm Onset (ms) Peak (ms) Norm Peak (ms) O-P Amp (?V) Norm O-P Amp Site1 Site2 Delta-0 (ms) Dist (cm) Forrest (m/s) Norm Forrest (m/s) Left Median Anti Sensory (2nd Digit) Wrist ? 2.8 3.6 <3.6 19.3 >10 Wrist 2nd Digit 2.8 14.0 50 Left Ulnar Anti Sensory (5th Digit) Wrist ? 1.7 3.0 <3.7 15.4 >15.0 Wrist 5th Digit 1.7 14.0 82 Motor Summary Table ?Stim Site NR Onset (ms) Norm Onset (ms) O-P Amp (mV) Norm O-P Amp iAmp (mV) Amp (1st) (%) Site1 Site2 Delta-0 (ms) Dist (cm) Forrest (m/s) Norm Forrest (m/s) Left Median Motor (Abd Poll Brev) Wrist ? 4.4 <3.9 5.9 >4.5 6.6 100.0 Elbow Wrist 4.4 23.0 52 >45 Elbow ? 8.8 4.9 5.6 83.1 Left Ulnar Motor (Abd Dig Minimi) Wrist ? 2.8 <3.0 7.5 >5 9.8 100.0 B Elbow Wrist 3.8 21.0 55 >45 B Elbow ? 6.6 7.6 10.0 101.3 A Elbow B Elbow 1.7 10.0 59 >45 A Elbow ? 8.3 7.2 9.5 96.0 Comparison Summary Table ?Stim Site NR Peak (ms) Norm Peak (ms) P-T Amp (?V) Site1 Site2 Delta-P (ms) Norm Delta (ms) Left Median/Radial Dig I Comparison (Digit 1 - 10cm) Median ? 3.0 <2.9 14.7 Median Radial 0.1 Radial ? 2.9 <2.8 6.8 EMG ?Side Muscle Nerve Root Ins Act Fibs Psw Amp Dur Poly Recrt Int Pat Comment Left 1stDorInt Ulnar C8-T1 Incr 1+ 1+ Nml Nml 0 Nml Complete Left FlexCarRad Median C6-7 Nml Nml Nml Nml Nml 0 Nml Complete Left Biceps Musculocut C5-6 Nml Nml Nml Nml Nml 0 Nml Complete Left Triceps Radial C6-7-8 Nml Nml Nml Nml Nml 0 Nml Complete Left Deltoid Axillary C5-6 Nml Nml Nml Nml Nml 0 Nml Complete Left Abd Poll Brev Median C8-T1 Nml Nml Nml Nml Nml 0 Nml Complete Paraspinal EMG ?Side Muscle Nerve Root Ins Act Fibs Psw Comment Left Cervical Upper Rami Nml Nml Nml Left Cervical Mid Rami Nml Nml Nml Left Cervical Lower Rami Incr 1+ 1+ CRD FINDINGS: Left median motor nerve showed prolonged distal latency, normal amplitude and normal conduction velocity. All other nerves tested were within normal. Concentric needle EMG was performed in selected muscles of the left upper extremity and cervical paraspinals. Study revealed signs of electric abnormalities as shown in the table above. Left FDI showed increased insertional activity, PSWs and fibrillations. Left lower cervical paraspinals showed increased insertional activity, PSWs and CRDs. IMPRESSION: 1. This is an abnormal study. 2. There is electrodiagnostic evidence for left C8-T1 subacute/chronic radiculopathy. 3. There is no electrodiagnostic evidence for median neuropathy, ulnar neuropathy, or brachial plexopathy. Thank you for your kind referral. Leticia Ozuna MD, LYNNETTE Board Certified, [place] [employer] and [employer] (ABPMR) Board Certified, [place] Board of Electrodiagnostic Medicine (ABEM) CODIN [id number], 1 extremity MTDD
--- OUTSIDE RECORDS SUMMARY | 2025-08-27 16:43 | XMS_ITS | Clinical Summary ---
Author Organization [address] [facility] Address [address] [place] [address] Phone Care Team Providers Care Tank Tester Name Role Phone Dale Niño NP Primary Care Provider [phone] Allergies No known active allergies Medications atorvastatin (LIPITOR) 40 mg tablet 1 tablet (40 mg total) 1 (one) time each day at the same time. Active sertraline (ZOLOFT) 100 mg tablet 1.5 tablets (150 mg total) 1 (one) time each day at the same time. 9 Active OLANZapine (ZyPREXA) 15 mg tablet 1 tablet (15 mg total) 1 (one) time each day at the same time. 9 Active albuterol HFA (PROAIR HFA ; PROVENTIL HFA ; VENTOLIN HFA) 90 mcg/actuation inhaler USE 1 INHALATION ORALLY EVERY 4 HOURS NEEDED Active Trelegy Ellipta 200-62.5-25 mcg inhaler Take by mouth 1 (one) time each day. Active fluticasone propionate (Flonase Allergy Relief) 50 mcg/actuation nasal spray 1 spray 1 (one) time each day at the same time. Active cetirizine (ZyrTEC) 10 mg tablet 1 tablet (10 mg total) 1 (one) time each day at the same time. Active famotidine (PEPCID) 20 mg tablet Take by mouth. Activ e B complex tablet Take 1 tablet by mouth 1 (one) time each day. Active vitamin E, dl,tocopheryl acet, (vitamin E, dl, acetate,) 450 mg (1,000 unit) capsule Take 1 capsule (1,000 Units total) by mouth 1 (one) time each day. Active Medical History Medical History Date Comments Depression 05/14/2023 DX:Depression; C OMMENT: 04/25/23 PCP note Seasonal allergies 05/14/2023 DX:Seasonal a llergies; COMMENT: 04/25/23 PCP note Mixed hyperlipidemia 05/14/2023 DX:Mixed hy perlipidemia; COMMENT: 04/25/23 PCP note [place]chronic obstructive pu [place]monary [place] [facility] 05/14/2023 DX:COPD (chronic o bstructive pulmonary disease) ([facility]); COMMENT: 04/25/23 PCP note Nicotine dependence 05/14/2023 DX:Nicotine dependence; COMMENT: 04/25/23 PCP note Schizoaffective disorder, de pressive type [place] [facility] 05/14/2023 DX:Schizoaffective dis order, depressive type ([facility]); COMMENT: 04/25/23 PCP note Lumbar radiculopathy 05/14/2023 DX:Lumbar r adiculopathy; COMMENT: 04/25/23 PCP note Right foot drop 05/14/2023 DX:Right foot dr op; COMMENT: 04/25/23 PCP note Vitamin D deficiency 05/14/2023 DX:Vitamin D deficiency; COMMENT: 04/25/23 PCP note Hypothyroidism, unspecified 05/14/2023 DX:H ypothyroidism, unspecified; COMMENT: 04/25/23 PCP note Pre-diabetes 05/14/2023 DX:Pre-diabetes; COMMENT: 04/25/23 PCP note Family History Medical History Relation Name Comments Other: alive Brother Other: Father Other: alive Mother Other: alive Sister 1 Other: alive Sister 2 Other: alive Son Lung cancer Neg Hx Relation Name Status Comments Brother Father Mother Sister 1 Sister 2 Alive Son Alive Social History Tobacco Use Types Packs/Day Years Used Date Smoking Tobacco: Every Day Cigarettes Smokeless Tobacco: Never Sex and Gender Information Value Date Recorded Sex Assigned at Not on file Legal Sex Male 8:42 AM EST Gender Identity Not on file Sexual Orientation Not on file Obstetrics History Last Filed Vital Signs Vital Sign Reading Time Taken Comments Blood Pressure - - Pulse - - Temperature - - Respiratory Rate - - Oxygen Saturation - - Inhaled Oxygen Concentration - - Weight 74.8 kg (165 lb) 04/21/2025 9:55 AM EDT Height 167.6 cm (5' 6 ) 04/21/2025 9:55 AM EDT Body Mass Index 26.63 04/21/2025 9:55 AM EDT Plan of Treatment Upcoming Encounters Date Type Department Care Team ([facility] st Contact Info) Description 09/13/2025 3:00 PM EST Office Visit Orthopedic Surgery - [place] [phone] [address] Abbi Ritter PA [address] [place] [address] Health Maintenance Due Date Last Done Comments Colorectal Cancer Screening: Colonoscopy 1960 HIV Screening 10/07/2022 Hepatitis C Screening 10/07/2022 Social Influencers of Health Screening 10/07/2022 Depression Screening 11/04/2024 Influenza Vaccine (#1) 2025 , 07/20/2023, 07/29/2022, Additional history exists DTaP,Tdap,and Td Vaccines (4 - Td or Tdap) 04/05/2029 04/05/2019, 06/03/2017, 08/22/2013 Cholesterol Screening (Lipid Panel) 04/20/2030 04/20/2025 Zoster Vaccines Completed 09/02/2021, 02/19/2019 Pneumococcal Vaccine: 50+ Years Completed 07/20/2023 COVID-19 Vaccine Completed 07/22/2024, , 07/29/2022, Additional history exists RSV Immunization Adult Patients Completed 07/22/2024 HIB Vaccines Aged Out No longer eligi ble based on patient's age to complete this topic HPV Vaccines Aged Out No longer eligi ble based on patient's age to complete this topic Hepatitis A Vaccines Aged Out No long er eligible based on patient's age to complete this topic Hepatitis B Vaccines Aged Out No long er eligible based on patient's age to complete this topic IPV Vaccines Aged Out No longer eligi ble based on patient's age to complete this topic MMR Vaccines Aged Out No longer eligi ble based on patient's age to complete this topic Meningococcal ACWY Vaccine Aged Out N o longer eligible based on patient's age to complete this topic Meningococcal B Vaccine Aged Out No l onger eligible based on patient's age to complete this topic RSV Immunization Patients Under 20 months Aged Out No longer eligible based on patient's age to complete this topic Varicella Vaccines Aged Out No longer eligible based on patient's age to complete this topic Procedures Procedure Name Priority Date/Time Associated Diagnosis Comments LIPID PANEL WITH REFLEX TO DIRECT LDL Routine 04/20/2025 7:49 AM EDT Routine general medical examination at a health care facility Screening for lipoid disorders Screening for diabetes mellitus Vitamin D deficiency disease Screening for thyroid disorder Special screening for malignant neoplasm of prostate Vitamin B12 deficiency anemia from Last 3 Months or Most Recently Relevant to Health Maintenance Results * Lipid panel with reflex to direct LDL (04/20/2025 7:49 AM EDT) Cholesterol 147 0 - 200 mg/dL LAB CHEMISTRY METHOD 04/20/2025 9:03 AM [facility] Triglycerides 92 0 - 150 mg/dL LAB CHEMISTRY METHOD 04/20/2025 9:03 AM [facility] HDL 41 >=40 mg/dL LAB CHEMISTRY METHOD 04/20/2025 9:03 AM [facility] LDL Calculated 88 0 - 100 mg/dL LAB CHEMISTRY METHOD 04/20/2025 9:03 AM [facility] VLDL Cholesterol Bhavin 18.4 mg/dL LAB CHEMISTRY METHOD 04/20/2025 9:03 AM [facility] Non HDL Chol. (LDL+VLDL) 106 <145 mg/dL LAB CHEMISTRY METHOD 04/20/2025 9:03 AM [facility] Chol/HDL Ratio 3.6 0.0 - 4.4 LAB CHEMISTRY METHOD 04/20/2025 9:03 AM [facility] Blood Venous blood specimen / Unknown Venipuncture / Unknown 04/20/2025 7:49 AM EDT 04/20/2025 8:12 AM EDT us Dale Niño PRESS DEPARTMENT MANAGER LAB BLOOD ORDERABLES Final Re sult [facility] [address] [place] [address], [place] [phone] from Last 3 Months or Most Recently Relevant to Health Maintenance Insurance MEDICARE [facility] Care Teams Tank Tester Relationship Specialty Start Date End Date Dale Niño, AL[place] [address] [address] PCP - General 05/13/23
--- OUTSIDE RECORDS SUMMARY | 2025-08-27 16:43 | XMS_ITS | Patient Health Record ---
Author Organization [facility] Address [address] [place] [address] Care Team Providers Care Shipwright Helper Name Role Phone ALEXISReuben PERI Unavailable [phone] EMILIANA SHANNON Unavailable [phone] Allergies No Known Allergies Results Component Value Reference Range Notes CT LUNG SCREENING Reviewed date:05/24/2025 01:38:50 PM Interpretation: Performing Lab: Notes/Report: Note See Note [facility], a member of [employer] Payment Patient Name: CATHRYN PUCKETT Date of : 1960 Reason for Exam: Lung cancer screening, >=20 pk yr current smoker (Age 50-80y) Exam Date: 05/21/2025 [id number] EST Report Status: Final Ordering Provider: TITI WHELAN PCP: PERI FAJARDO EXAMINATION: CT CHEST WITHOUT CONTRAST LUNG CANCER SCREENIN G, LOW DOSE CLINICAL INFORMATION: Lung cancer screenin g. Current smoker. COMPARISON: 05/23/24 TECHNIQUE: Multidetector CT. Examination of the chest. Examination of the c hest without IV contrast. Reformatting in the coronal and sagittal planes. Device: Airseed VCT DLP: 109 mGy-cm CTDI: 3.22 Dose optimization wa s performed including the use of low-dose iterative reconstruction technique with automatic exposure control based on patient size. Type of contrast: None Volume of IV contras t: None Volume of contrast discarded: 0 mL FINDINGS: LUNG: There are some secretions greatest in the right mainstem bronchus. LUNG NODULES: There are no suspicious masses. There are no discrete nodules. There are irregular thick-walled cysts in the dependent right lower lobe again demonstrated. No measurable solid mass. Some of these could be related to bronchiolectasis. OTHER PULMONARY: The re are findings of paraseptal emphysema and there are scattered groundglass opacities. There are interstiti al lung abnormalities greatest in the dependent right lower lung zone but present bilaterally. There is no honeycomb formation. There is a new linear/bandlike opacity in the right lower lobe. Some of the apparent worsening could be related to suboptimal inspiratory result. MEDIASTINUM: Unchang ed mediastinal lymph nodes including retrocaval pretracheal and aorticopulmonary window region. No new suspicious lymphadenopathy. No suspicious abnormality of the esophagus. CARDIAC: The heart i s not enlarged. No pericardial fluid or thickening There are moderate coronary calcifications. VASCULAR: There is n o thoracic aortic aneurysm. The main pulmonary artery is normal caliber PLEURA: There is no pleural fluid or pneumothorax AXILLA/CHEST WALL: T here are no enlarged axillary lymph nodes. No chest wall mass demonstrated. VISUALIZED UPPER ABDOMEN: No suspicious abnormality on limited assessment of the visualized upper abdomen. MUSCULOSKELETAL: No suspicious focal bony lesion demonstrated. IMPRESSION: No suspicious mass o r nodule. No suspicious interv al change. Extensive interstiti al lung abnormalities including groundglass opacities and thick-walled cysts/areas of bronchiolectasis. LUNG RADS: Lung-RADS 2: BENIGN S Modifier (Signific ant or Potentially Significant Findings): None present No suspicious nonpulmonary findings. RECOMMENDATIONS: 12 month screening l ow dose CT -------- FINAL REPOR T -------- Dictated By: Vincent Cobb Dictated Date: 05/24/2025 13:13 ET Assigned Physician: Vincent Castro Reviewed and Electronically Signed By: Vincent Castro Signed Date: 025 13:23 ET Workstation ID: [id number] Transcribed By: Self Edit Transcribed Date: 05/24/2025 13:13 ET URINALYSIS WITH REFLEX MICRO SCOPIC Reviewed date:04/20/2025 09:03:36 AM Interpretation: Performing Lab: Notes/Report: Specific [place] Urine 1.012 1.003-1.030 pH, Urine 6.0 5.0-8.0 pH Leukocytes, Urine Negative Negative Nitrite, Urine Negative Negative Protein, Urine Negative <=Trace mg/dL Glucose, Urine Negative Negative mg/dL Ketones, Urine Negative Negative mg/dL Urobilinogen, Urine 1.0 0.2-1.0 mg/dL Bilirubin, Urine Negative Negative Blood, Urine Negative Negative CBC WITH AUTO DIFFERENTIAL Reviewed date:04/20/2025 09:03:24 AM Interpretation: Performing Lab: Notes/Report: WBC 11.1 4.8-10.8 K/mcL RBC 4.10 4.50-5.50 M/mcL Hemoglobin 13.5 13.5-17.5 g/dL Hematocrit 40.9 42.0-54.0 % MCV 98.8 79.0-98.0 FL MCH 32.6 27.0-32.0 pcg MCHC 33.0 32.0-37.0 g/dL RDW 13.2 11.0-15.0 % Platelets 290 130-400 K/mcL MPV 10.4 7.0-11.0 FL NRBC 0.0 <1.0 % NRBC Absolute 0.00 <0.10 K/mcL Neutrophils Relative 60.5 Lymphocytes Relative 29.6 Monocytes Relative 7.7 Eosinophils Relative 1.2 Basophils Relative 0.5 Immature Granulocytes Relative 0.5 Neutrophils Absolute 6.72 1.50-7.00 K/mcL Lymphocytes Absolute 3.28 1.00-5.00 K/mcL Monocytes Absolute 0.85 0.20-1.00 K/mcL Eosinophils Absolute 0.13 0.00-0.50 K/mcL Basophils Absolute 0.06 0.00-0.20 K/mcL Immature Granulocytes Absolute 0.05 0.00-0.03 K/mcL FREE THYROXINE WITH REFLEX T O FREE TRIIODOTHYRONINE Reviewed date:04/20/2025 10:43:44 AM Interpretation: Performing Lab: Notes/Report: Free T4 1.07 0.70-1.80 ng/dL VITAMIN B12 Reviewed date:04/20/2025 09:56:32 AM Interpretation: Performing Lab: Notes/Report: Vitamin B-12 385 250-900 pcg/mL PROSTATE SPECIFIC ANTIGEN MONA FERNANDEZN Reviewed date:04/20/2025 10:17:48 AM Interpretation: Performing Lab: Notes/Report: The Siemens Advia Centaur Chemiluminescent Immunoassay is used. Results obtained with different assay methods or kits cannot be used interchangeably. Results cannot be interpreted as absolute evidence of the presence or absence of malignant disease. PSA 0.36 0.00-4.00 ng/mL HEMOGLOBIN A1C Reviewed date:04/20/2025 11:00:35 AM Interpretation: Performing Lab: Notes/Report: Hemoglobin A1C 5.8 <6.5 % Mean Bld Glu Estim. 120 THYROID STIMULATING HORMONE WITH REFLEX TO FREE T4 AND FREE T3 Reviewed date:04/20/2025 10:43:44 AM Interpretation: Performing Lab: Notes/Report: TSH 4.16 0.40-4.00 mcIU/mL TRIIODOTHYRONINE FREE Reviewed date:04/20/2025 11:00:35 AM Interpretation: Performing Lab: Notes/Report: T3, Free 317 230-420 pcg/dL COMPREHENSIVE METABOLIC PANE L Reviewed date:04/20/2025 09:17:49 AM Interpretation: Performing Lab: Notes/Report: Sodium 137 133-145 mmol/L Potassium 4.1 3.5-5.5 mmol/L Chloride 108 96-110 mmol/L CO2 22 21-32 mmol/L Anion Gap 7 3-11 Glucose 88 70-100 mg/dL BUN 13 5-25 mg/dL Creatinine 0.96 0.70-1.30 mg/dL eGFR 89 >=60 mL/min/1.73m2 Calculation based on the Chronic Kidney Disease Epidemiology Collaboration (CKD-EPI) equation refit without adjustment for race. BUN/Creatinine Ratio 13.5 Calcium 8.7 8.5-10.5 mg/dL AST (SGOT) 28 10-42 unit/L ALT (SGPT) 35 10-60 unit/L Alkaline Phosphatase 95 42-121 unit/L Total Protein 6.8 6.0-8.0 g/dL Albumin 3.7 3.2-5.0 g/dL Total Bilirubin 0.4 0.0-1.4 mg/dL THYROXINE FREE Reviewed date:04/20/2025 10:17:48 AM Interpretation: Performing Lab: Notes/Report: Free T4 1.07 0.70-1.80 ng/dL VITAMIN D 25 HYDROXY Reviewed date:04/20/2025 10:17:48 AM Interpretation: Performing Lab: Notes/Report: Vit D, 25-Hydroxy 16.1 30.0-80.0 ng/mL LIPID PANEL WITH REFLEX TO D IRECT LDL Reviewed date:04/20/2025 09:17:49 AM Interpretation: Performing Lab: Notes/Report: Cholesterol 147 0-200 mg/dL Triglycerides 92 0-150 mg/dL HDL 41 >=40 mg/dL LDL Calculated 88 0-100 mg/dL VLDL Cholesterol Bhavin 18.4 Non HDL Chol. (LDL+VLDL) 106 <145 mg/dL Chol/HDL Ratio 3.6 0.0-4.4 Reason For Referral Diagnosis 1 Left carpal tunnel s yndrome (G56.02) Referral Organization [facility] [address] Referring Provider First Name PERI Referring Provider Last Name ALEXISReuben Referring Provider Speciality Internal M edicine Referred Provider Specialty Hand Surgery General Notes Faxing to Dr. eder mena's office Clinical Notes Finn Rodriguez 025 03:52:07 PM > p: [phone], f: [phone], Manuel Wright 06/09/2025 03:48:50 PM > The patient was seen on 04/21/25 Referral Priority Routine Medications Medication SIG (Take, Route, Frequency, Duration) Notes Start Date End Date Status OLANZapine 15 MG 1 tablet Orally Once a day; Duration: 90 days Active Vitamin E Active Famotidine 20 MG 1 tablet at bedtime as needed Orally Once a day Active Permethrin 5 % 1 application, Massa ge the cream into the skin from the head to the soles of the feet, paying special attention to creases in the skin, hands, feet, between fingers and toes, underarms, and groin. Externally once; Duration: 1 days 12/05/2023 Not-Taking Atorvastatin Calcium 40 MG 1 tablet Orally Once a day; Duration: 90 days Active Ozempic (1 MG/DOSE) 4 MG/3ML INJECT 1 MG SUBCUTANEOUSLY WEEKLY 30 DAYS; Duration: 30 Not-Taking Sertraline HCl 100 MG 1.5 tablet Oral On ce a day; Duration: 90 days Active Meloxicam 15 MG 1 tablet Orally Once a day; Duration: 21 day(s) Not-Larry ing Atorvastatin Calcium 10 mg TAKE 1 TABLET DAILY Not-Taki ng Mounjaro 2.5 MG/0.5ML as directed Subcut aneous weekly; Duration: 30 days Active ZyrTEC Allergy 10 MG 1 tablet Orally Onc e a day Not-Taking Mounjaro 2.5 MG/0.5ML inject 2 Subcutane ous once a week; Duration: 30 days 06/14/2025 Active Atorvastatin Calcium 40 MG TAKE 1 TABLET BY MOUTH EVERY DAY; Duration: 90 Active Flonase Allergy Relief 50 MCG/ACT 1 spray in each nostril Nasally Once a day Active OLANZapine 15 MG TAKE 1 TABLET ONCE D AILY; Duration: 90 Active Albuterol Sulfate HFA 108 (90 Base) MCG/ACT INHALE 1 PUFF EVERY 4 HOURS NEEDED FOR WHEEZE FOR SHORTNESS OF BREATH; Duration: 30 Active Sertraline HCl 100 MG TAKE 1 AND 1/2 TAB LETS ONCEDAILY; Duration: 90 Active Trelegy Ellipta 200-62.5-25 MCG/ACT USE 1 INHALATION ORALLY DAILY; Duration: 90 Active Advair HFA 115-21 MCG/ACT USE 2 INHALATIONS TWICE A DAY Active Vitamin B Complex - TAKE 1 TABLET BY FRANKY TH EVERY DAY FOR 90 DAYS; Duration: 90 Active hydrOXYzine HCl 25 MG 1 tablet as needed for pruritis Orally three times a day; Duration: 10 days 12/05/2023 Not-Taking Immunizations Vaccine Route Administration Date Status Comme nts influenza Unknown 08/20/2020 Administered influenza Unknown 09/04/2021 Administered SHINGRIX IM Intramuscular 09/04/2021 Administered Social History Tobacco Use: Social History Observation Description Date Details (start date - stop date) Current Smoker NA - NA Sex Assigned At : Social History Observation Description Sex Assigned At Male Tobacco Use/Smoking Question Answer Notes Are you a current smoker How often do you smoke cigarettes? every day How many cigarettes a day do you smoke? 21-30 Problems Problem Type SNOMED Code ICD Code Onset Dates Problem Status W/U Status Risk Notes Problem Information temporarily unavailable Vitamin B12 deficiency anemia, unspecified (D51.9) Active confirmed Problem Information temporarily unavailable Hypothyroidism, unspecified (E03.9) Active confirmed Problem Information temporarily unavailable Hyperlipidemia, unspecified (E78.5) Active confirmed Problem Information temporarily unavailable Nicotine dependence, unspecified, uncomplicated (F17.200) Active confirmed Problem Information temporarily unavailable Schizoaffective disorder, depressive type (F25.1) Active confirmed Problem Information temporarily unavailable Chronic obstructive pulmonary disease, unspecified (J44.9) Active confirmed Problem Information temporarily unavailable Hyperlipidemia, unspecified (E78.5) Active confirmed Problem Information temporarily unavailable Prediabetes (R73.03) Active confirmed Problem Information temporarily unavailable Colon cancer screening (Z12.11) Active confirmed Problem Information temporarily unavailable Encounter for screening colonoscopy (Z12.11) Active confirmed Problem Information temporarily unavailable Adult general medical exam (Z00.00) Active confirmed Problem Information temporarily unavailable Vitamin D deficiency (E55.9) Active confirmed Problem Information temporarily unavailable Right elbow pain (M25.521) Active confirmed Problem Information temporarily unavailable Hip pain (M25.559) Active confirmed Problem Information temporarily unavailable Positive colorectal cancer screening using Cologuard test (R19.5) Active confirmed Problem Information temporarily unavailable Carpal tunnel syndrome of left wrist (G56.02) Active confirmed Problem Information temporarily unavailable Right lumbar radiculitis (M54.16) Active confirmed Vital Signs Heart Rate 93 /min 2025 Blood pressure diastolic 84 mm Hg 2025 Oximetry 97 % 2025 Height 66 in 2025 Blood pressure systolic 132 mm Hg 2025 Weight 151 lbs 2025 BMI 24.37 kg/m2 2025 Encounters Encounter Location Date Provider Diagnosis [facility] [address] [address] 09/07/2024 PERI BORHOT Hyperlipidemia, unspecified E78.5 ; Chronic obstructive pulmonary disease, unspecified J44.9 ; Nicotine dependence, unspecified, uncomplicated F17.200 ; Schizoaffective disorder, depressive type F25.1 ; Right lumbar radiculitis M54.16 and Right foot drop M21.371 [facility] [address] [address] 03/11/2025 PERI BORHOT Hyperlipidemia, unspecified E78.5 ; Chronic obstructive pulmonary disease, unspecified J44.9 ; Schizoaffective disorder, depressive type F25.1 ; Nicotine dependence, unspecified, uncomplicated F17.200 ; Right lumbar radiculitis M54.16 ; Carpal tunnel syndrome of left wrist G56.02 ; Vitamin B12 deficiency anemia, unspecified D51.9 and Abnormal TSH R79.89 [facility] [address] [address] 05/28/2025 PERI BORHOT Hyperlipidemia, unspecified E78.5 ; Annual physical exam Z00.00 ; Chronic obstructive pulmonary disease, unspecified J44.9 ; Schizoaffective disorder, depressive type F25.1 ; Nicotine dependence, unspecified, uncomplicated F17.200 ; Right lumbar radiculitis M54.16 ; Carpal tunnel syndrome of left wrist G56.02 ; Vitamin B12 deficiency anemia, unspecified D51.9 ; Abnormal TSH R79.89 and Encounter for examination of blood pressure without abnormal findings Z01.30 [facility] [address] [address] 2025 PERI BORHOT Hyperlipidemia, unspecified E78.5 ; Chronic obstructive pulmonary disease, unspecified J44.9 ; Schizoaffective disorder, depressive type F25.1 ; Nicotine dependence, unspecified, uncomplicated F17.200 ; Right lumbar radiculitis M54.16 ; Carpal tunnel syndrome of left wrist G56.02 ; Vitamin B12 deficiency anemia, unspecified D51.9 ; Abnormal TSH R79.89 and Encounter for examination of blood pressure without abnormal findings Z01.[address] [facility] [address] [place] [address] 01/26/2025 PERI BORHOT [facility] [address] [address] 03/11/2025 PERI BORHOT [facility] [address] [address] 03/24/2025 PERI BORHOT [facility] [address] [address] 03/25/2025 PERI BORHOT [facility] [address] [address] 01/17/2025 PERI BORHOT [facility] [address] [address] 06/14/2025 PERI BORHOT Assessments Encounter Date Diagnosis (ICD Code) Assessment Notes Treatment Notes Treatment Clinical Notes Section Notes 03/11/2025 Hyperlipidemia, unspecified (ICD-10 - E78.5) Acute Concerns/Problem List: 03/11/2025 Overall he is well _update labs Low-dose CT 05/2024 unremarkable Annual surveillance through [facility] lung cancer program no desire to quit still searching for Psych provider Stable on current medication regimen and We are prescribing these medicines in the interim Colorectal screening was completed this year, 5 yr surveilance Left Elbow flexion pain and positive phalens test. Pain from elbow down to the fingers. Referred to Mihai at [place] [facility] G56.02 Of note, some information is being carried forward from prior records for informational purposes only and is being cited so that efficiency, safety and quality of the patient's care is not compromised This note was prepared using voice recognition software and direct typing Please excuse inadvertent superintendent plant protection or typing errors, or uncorrected word substitutions Although every attempt has been made by the provider to proofread this document, occasional misspellings and typographical errors may still be present Due to the previous pandemic, and the use of personal protective equipment (PPE) This may decrease voice recognition accuracy Inadvertent superintendent plant protection errors may occur 05/28/2025 Hyperlipidemia, unspecified (ICD-10 - E78.5) Acute Concerns/Problem List: 05/28/2025 Overall he is well Labs reviewed Low-dose CT 05/2025 unremarkable Annual surveillance through [facility] lung cancer program no desire to quit smoking still searching for Psych provider Stable on current medication regimen and We are prescribing these medicines in the interim Colorectal screening was completed this year, 5 yr surveilance Discussed weight loss medications and visceral fat And criteria Of note, some information is being carried forward from prior records for informational purposes only and is being cited so that efficiency, safety and quality of the patient's care is not compromised This note was prepared using voice recognition software and direct typing Please excuse inadvertent superintendent plant protection or typing errors, or uncorrected word substitutions Although every attempt has been made by the provider to proofread this document, occasional misspellings and typographical errors may still be present Due to the previous pandemic, and the use of personal protective equipment (PPE) This may decrease voice recognition accuracy Inadvertent superintendent plant protection errors may occur 05/28/2025 Annual physical exam (ICD-10 - Z00.00) Acute Concerns/Problem List: 05/28/2025 Overall he is well Labs reviewed Low-dose CT 05/2025 unremarkable Annual surveillance through [facility] lung cancer program no desire to quit smoking still searching for Psych provider Stable on current medication regimen and We are prescribing these medicines in the interim Colorectal screening was completed this year, 5 yr surveilance Discussed weight loss medications and visceral fat And criteria Of note, some information is being carried forward from prior records for informational purposes only and is being cited so that efficiency, safety and quality of the patient's care is not compromised This note was prepared using voice recognition software and direct typing Please excuse inadvertent superintendent plant protection or typing errors, or uncorrected word substitutions Although every attempt has been made by the provider to proofread this document, occasional misspellings and typographical errors may still be present Due to the previous pandemic, and the use of personal protective equipment (PPE) This may decrease voice recognition accuracy Inadvertent superintendent plant protection errors may occur 2025 Hyperlipidemia, unspecified (ICD-10 - E78.5) Acute Concerns/Problem List: 2025 Chronic conditions are stable mental health is stable Low-dose CT 05/2025 unremarkable Annual surveillance through [facility] lung cancer program no desire to [...] software and direct typing Please excuse inadvertent superintendent plant protection or typing errors, or uncorrected word substitutions Although every attempt has been made by the provider to proofread this document, occasional misspellings and typographical errors may still be present Due to the previous pandemic, and the use of personal protective equipment (PPE) This may decrease voice recognition accuracy Inadvertent superintendent plant protection errors may occur 09/07/2024 Hyperlipidemia, unspecified (ICD-10 - E78.5) Acute Concerns/Problem List: 09/07/2024 Overall he is well, Low-dose CT 05/2024 unremarkable Annual surveillance through [facility] lung cancer program no desire to [...] software and direct typing Please excuse inadvertent superintendent plant protection or typing errors, or uncorrected word substitutions Although every attempt has been made by the provider to proofread this document, occasional misspellings and typographical errors may still be present Due to the previous pandemic, and the use of personal protective equipment (PPE) This may decrease voice recognition accuracy Inadvertent superintendent plant protection errors may occur 09/07/2024 Chronic obstructive pulmonary disease, unspecified (ICD-10 - J44.9) Acute Concerns/Problem List: 09/07/2024 Overall he is well, Low-dose CT 05/2024 unremarkable Annual surveillance through [facility] lung cancer program no desire to [...] software and direct typing Please excuse inadvertent superintendent plant protection or typing errors, or uncorrected word substitutions Although every attempt has been made by the provider to proofread this document, occasional misspellings and typographical errors may still be present Due to the previous pandemic, and the use of personal protective equipment (PPE) This may decrease voice recognition accuracy Inadvertent superintendent plant protection errors may occur 2025 Chronic obstructive pulmonary disease, unspecified (ICD-10 - J44.9) Acute Concerns/Problem List: 2025 Chronic conditions are stable mental health is stable Low-dose CT 05/2025 unremarkable Annual surveillance through [facility] lung cancer program no desire to [...] software and direct typing Please excuse inadvertent superintendent plant protection or typing errors, or uncorrected word substitutions Although every attempt has been made by the provider to proofread this document, occasional misspellings and typographical errors may still be present Due to the previous pandemic, and the use of personal protective equipment (PPE) This may decrease voice recognition accuracy Inadvertent superintendent plant protection errors may occur 05/28/2025 Chronic obstructive pulmonary disease, unspecified (ICD-10 - J44.9) Acute Concerns/Problem List: 05/28/2025 Overall he is well Labs reviewed Low-dose CT 05/2025 unremarkable Annual surveillance through [facility] lung cancer program no desire to quit smoking still searching for Psych provider Stable on current medication regimen and We are prescribing these medicines in the interim Colorectal screening was completed this year, 5 yr surveilance Discussed weight loss medications and visceral fat And criteria Of note, some information is being carried forward from prior records for informational purposes only and is being cited so that efficiency, safety and quality of the patient's care is not compromised This note was prepared using voice recognition software and direct typing Please excuse inadvertent superintendent plant protection or typing errors, or uncorrected word substitutions Although every attempt has been made by the provider to proofread this document, occasional misspellings and typographical errors may still be present Due to the previous pandemic, and the use of personal protective equipment (PPE) This may decrease voice recognition accuracy Inadvertent superintendent plant protection errors may occur 03/11/2025 Chronic obstructive pulmonary disease, unspecified (ICD-10 - J44.9) Acute Concerns/Problem List: 03/11/2025 Overall he is well _update labs Low-dose CT 05/2024 unremarkable Annual surveillance through [facility] lung cancer program no desire to quit still searching for Psych provider Stable on current medication regimen and We are prescribing these medicines in the interim Colorectal screening was completed this year, 5 yr surveilance Left Elbow flexion pain and positive phalens test. Pain from elbow down to the fingers. Referred to Mihai at [place] [facility] G56.02 Of note, some information is being carried forward from prior records for informational purposes only and is being cited so that efficiency, safety and quality of the patient's care is not compromised This note was prepared using voice recognition software and direct typing Please excuse inadvertent superintendent plant protection or typing errors, or uncorrected word substitutions Although every attempt has been made by the provider to proofread this document, occasional misspellings and typographical errors may still be present Due to the previous pandemic, and the use of personal protective equipment (PPE) This may decrease voice recognition accuracy Inadvertent superintendent plant protection errors may occur 03/11/2025 Schizoaffective disorder, depressive type (ICD-10 - F25.1) Acute Concerns/Problem List: 03/11/2025 Overall he is well _update labs Low-dose CT 05/2024 unremarkable Annual surveillance through [facility] lung cancer program no desire to quit still searching for Psych provider Stable on current medication regimen and We are prescribing these medicines in the interim Colorectal screening was completed this year, 5 yr surveilance Left Elbow flexion pain and positive phalens test. Pain from elbow down to the fingers. Referred to Mihai at [place] [facility] G56.02 Of note, some information is being carried forward from prior records for informational purposes only and is being cited so that efficiency, safety and quality of the patient's care is not compromised This note was prepared using voice recognition software and direct typing Please excuse inadvertent superintendent plant protection or typing errors, or uncorrected word substitutions Although every attempt has been made by the provider to proofread this document, occasional misspellings and typographical errors may still be present Due to the previous pandemic, and the use of personal protective equipment (PPE) This may decrease voice recognition accuracy Inadvertent superintendent plant protection errors may occur 05/28/2025 Schizoaffective disorder, depressive type (ICD-10 - F25.1) Acute Concerns/Problem List: 05/28/2025 Overall he is well Labs reviewed Low-dose CT 05/2025 unremarkable Annual surveillance through [facility] lung cancer program no desire to quit smoking still searching for Psych provider Stable on current medication regimen and We are prescribing these medicines in the interim Colorectal screening was completed this year, 5 yr surveilance Discussed weight loss medications and visceral fat And criteria Of note, some information is being carried forward from prior records for informational purposes only and is being cited so that efficiency, safety and quality of the patient's care is not compromised This note was prepared using voice recognition software and direct typing Please excuse inadvertent superintendent plant protection or typing errors, or uncorrected word substitutions Although every attempt has been made by the provider to proofread this document, occasional misspellings and typographical errors may still be present Due to the previous pandemic, and the use of personal protective equipment (PPE) This may decrease voice recognition accuracy Inadvertent superintendent plant protection errors may occur 2025 Schizoaffective disorder, depressive type (ICD-10 - F25.1) Acute Concerns/Problem List: 2025 Chronic conditions are stable mental health is stable Low-dose CT 05/2025 unremarkable Annual surveillance through [facility] lung cancer program no desire to [...] software and direct typing Please excuse inadvertent superintendent plant protection or typing errors, or uncorrected word substitutions Although every attempt has been made by the provider to proofread this document, occasional misspellings and typographical errors may still be present Due to the previous pandemic, and the use of personal protective equipment (PPE) This may decrease voice recognition accuracy Inadvertent superintendent plant protection errors may occur 09/07/2024 Nicotine dependence, unspecified, uncomplicated (ICD-10 - F17.200) Acute Concerns/Problem List: 09/07/2024 Overall he is well, Low-dose CT 05/2024 unremarkable Annual surveillance through [facility] lung cancer program no desire to [...] software and direct typing Please excuse inadvertent superintendent plant protection or typing errors, or uncorrected word substitutions Although every attempt has been made by the provider to proofread this document, occasional misspellings and typographical errors may still be present Due to the previous pandemic, and the use of personal protective equipment (PPE) This may decrease voice recognition accuracy Inadvertent superintendent plant protection errors may occur 09/07/2024 Schizoaffective disorder, depressive type (ICD-10 - F25.1) Acute Concerns/Problem List: 09/07/2024 Overall he is well, Low-dose CT 05/2024 unremarkable Annual surveillance through [facility] lung cancer program no desire to [...] software and direct typing Please excuse inadvertent superintendent plant protection or typing errors, or uncorrected word substitutions Although every attempt has been made by the provider to proofread this document, occasional misspellings and typographical errors may still be present Due to the previous pandemic, and the use of personal protective equipment (PPE) This may decrease voice recognition accuracy Inadvertent superintendent plant protection errors may occur 2025 Nicotine dependence, unspecified, uncomplicated (ICD-10 - F17.200) Acute Concerns/Problem List: 2025 Chronic conditions are stable mental health is stable Low-dose CT 05/2025 unremarkable Annual surveillance through [facility] lung cancer program no desire to [...] software and direct typing Please excuse inadvertent superintendent plant protection or typing errors, or uncorrected word substitutions Although every attempt has been made by the provider to proofread this document, occasional misspellings and typographical errors may still be present Due to the previous pandemic, and the use of personal protective equipment (PPE) This may decrease voice recognition accuracy Inadvertent superintendent plant protection errors may occur 05/28/2025 Nicotine dependence, unspecified, uncomplicated (ICD-10 - F17.200) Acute Concerns/Problem List: 05/28/2025 Overall he is well Labs reviewed Low-dose CT 05/2025 unremarkable Annual surveillance through [facility] lung cancer program no desire to quit smoking still searching for Psych provider Stable on current medication regimen and We are prescribing these medicines in the interim Colorectal screening was completed this year, 5 yr surveilance Discussed weight loss medications and visceral fat And criteria Of note, some information is being carried forward from prior records for informational purposes only and is being cited so that efficiency, safety and quality of the patient's care is not compromised This note was prepared using voice recognition software and direct typing Please excuse inadvertent superintendent plant protection or typing errors, or uncorrected word substitutions Although every attempt has been made by the provider to proofread this document, occasional misspellings and typographical errors may still be present Due to the previous pandemic, and the use of personal protective equipment (PPE) This may decrease voice recognition accuracy Inadvertent superintendent plant protection errors may occur 03/11/2025 Nicotine dependence, unspecified, uncomplicated (ICD-10 - F17.200) Acute Concerns/Problem List: 03/11/2025 Overall he is well _update labs Low-dose CT 05/2024 unremarkable Annual surveillance through [facility] lung cancer program no desire to quit still searching for Psych provider Stable on current medication regimen and We are prescribing these medicines in the interim Colorectal screening was completed this year, 5 yr surveilance Left Elbow flexion pain and positive phalens test. Pain from elbow down to the fingers. Referred to Mihai at [facility] G56.02 Of note, some information is being carried forward from prior records for informational purposes only and is being cited so that efficiency, safety and quality of the patient's care is not compromised This note was prepared using voice recognition software and direct typing Please excuse inadvertent superintendent plant protection or typing errors, or uncorrected word substitutions Although every attempt has been made by the provider to proofread this document, occasional misspellings and typographical errors may still be present Due to the previous pandemic, and the use of personal protective equipment (PPE) This may decrease voice recognition accuracy Inadvertent superintendent plant protection errors may occur 03/11/2025 Right lumbar radiculitis (ICD-10 - M54.16) Acute Concerns/Problem List: 03/11/2025 Overall he is well _update labs Low-dose CT 05/2024 unremarkable Annual surveillance through [facility] lung cancer program no desire to quit still searching for Psych provider Stable on current medication regimen and We are prescribing these medicines in the interim Colorectal screening was completed this year, 5 yr surveilance Left Elbow flexion pain and positive phalens test. Pain from elbow down to the fingers. Referred to Mihai at [facility] surgery G56.02 Of note, some information is being carried forward from prior records for informational purposes only and is being cited so that efficiency, safety and quality of the patient's care is not compromised This note was prepared using voice recognition software and direct typing Please excuse inadvertent superintendent plant protection or typing errors, or uncorrected word substitutions Although every attempt has been made by the provider to proofread this document, occasional misspellings and typographical errors may still be present Due to the previous pandemic, and the use of personal protective equipment (PPE) This may decrease voice recognition accuracy Inadvertent superintendent plant protection errors may occur 05/28/2025 Right lumbar radiculitis (ICD-10 - M54.16) Acute Concerns/Problem List: 05/28/2025 Overall he is well Labs reviewed Low-dose CT 05/2025 unremarkable Annual surveillance through [facility] lung cancer program no desire to quit smoking still searching for Psych provider Stable on current medication regimen and We are prescribing these medicines in the interim Colorectal screening was completed this year, 5 yr surveilance Discussed weight loss medications and visceral fat And criteria Of note, some information is being carried forward from prior records for informational purposes only and is being cited so that efficiency, safety and quality of the patient's care is not compromised This note was prepared using voice recognition software and direct typing Please excuse inadvertent superintendent plant protection or typing errors, or uncorrected word substitutions Although every attempt has been made by the provider to proofread this document, occasional misspellings and typographical errors may still be present Due to the previous pandemic, and the use of personal protective equipment (PPE) This may decrease voice recognition accuracy Inadvertent superintendent plant protection errors may occur 2025 Right lumbar radiculitis (ICD-10 - M54.16) Acute Concerns/Problem List: 2025 Chronic conditions are stable mental health is stable Low-dose CT 05/2025 unremarkable Annual surveillance through [facility] lung cancer program no desire to [...] software and direct typing Please excuse inadvertent superintendent plant protection or typing errors, or uncorrected word substitutions Although every attempt has been made by the provider to proofread this document, occasional misspellings and typographical errors may still be present Due to the previous pandemic, and the use of personal protective equipment (PPE) This may decrease voice recognition accuracy Inadvertent superintendent plant protection errors may occur 09/07/2024 Right lumbar radiculitis (ICD-10 - M54.16) Acute Concerns/Problem List: 09/07/2024 Overall he is well, Low-dose CT 05/2024 unremarkable Annual surveillance through [facility] lung cancer program no desire to [...] software and direct typing Please excuse inadvertent superintendent plant protection or typing errors, or uncorrected word substitutions Although every attempt has been made by the provider to proofread this document, occasional misspellings and typographical errors may still be present Due to the previous pandemic, and the use of personal protective equipment (PPE) This may decrease voice recognition accuracy Inadvertent superintendent plant protection errors may occur 09/07/2024 Right foot drop (ICD-10 - M21.371) Acute Concerns/Problem List: 09/07/2024 Overall he is well, Low-dose CT 05/2024 unremarkable Annual surveillance through [facility] lung cancer program no desire to [...] software and direct typing Please excuse inadvertent superintendent plant protection or typing errors, or uncorrected word substitutions Although every attempt has been made by the provider to proofread this document, occasional misspellings and typographical errors may still be present Due to the previous pandemic, and the use of personal protective equipment (PPE) This may decrease voice recognition accuracy Inadvertent superintendent plant protection errors may occur 05/28/2025 Carpal tunnel syndrome of left wrist (ICD-10 - G56.02) Acute Concerns/Problem List: 05/28/2025 Overall he is well Labs reviewed Low-dose CT 05/2025 unremarkable Annual surveillance through [facility] lung cancer program no desire to quit smoking still searching for Psych provider Stable on current medication regimen and We are prescribing these medicines in the interim Colorectal screening was completed this year, 5 yr surveilance Discussed weight loss medications and visceral fat And criteria Of note, some information is being carried forward from prior records for informational purposes only and is being cited so that efficiency, safety and quality of the patient's care is not compromised This note was prepared using voice recognition software and direct typing Please excuse inadvertent superintendent plant protection or typing errors, or uncorrected word substitutions Although every attempt has been made by the provider to proofread this document, occasional misspellings and typographical errors may still be present Due to the previous pandemic, and the use of personal protective equipment (PPE) This may decrease voice recognition accuracy Inadvertent superintendent plant protection errors may occur 2025 Carpal tunnel syndrome of left wrist (ICD-10 - G56.02) Acute Concerns/Problem List: 2025 Chronic conditions are stable mental health is stable Low-dose CT 05/2025 unremarkable Annual surveillance through [facility] lung cancer program no desire to [...] software and direct typing Please excuse inadvertent superintendent plant protection or typing errors, or uncorrected word substitutions Although every attempt has been made by the provider to proofread this document, occasional misspellings and typographical errors may still be present Due to the previous pandemic, and the use of personal protective equipment (PPE) This may decrease voice recognition accuracy Inadvertent superintendent plant protection errors may occur 03/11/2025 Carpal tunnel syndrome of left wrist (ICD-10 - G56.02) Acute Concerns/Problem List: 03/11/2025 Overall he is well _update labs Low-dose CT 05/2024 unremarkable Annual surveillance through [facility] lung cancer program no desire to quit still searching for Psych provider Stable on current medication regimen and We are prescribing these medicines in the interim Colorectal screening was completed this year, 5 yr surveilance Left Elbow flexion pain and positive phalens test. Pain from elbow down to the fingers. Referred to Mihai at [place] [facility] G56.02 Of note, some information is being carried forward from prior records for informational purposes only and is being cited so that efficiency, safety and quality of the patient's care is not compromised This note was prepared using voice recognition software and direct typing Please excuse inadvertent superintendent plant protection or typing errors, or uncorrected word substitutions Although every attempt has been made by the provider to proofread this document, occasional misspellings and typographical errors may still be present Due to the previous pandemic, and the use of personal protective equipment (PPE) This may decrease voice recognition accuracy Inadvertent superintendent plant protection errors may occur 03/11/2025 Vitamin B12 deficiency anemia, unspecified (ICD-10 - D51.9) Acute Concerns/Problem List: 03/11/2025 Overall he is well _update labs Low-dose CT 05/2024 unremarkable Annual surveillance through [facility] lung cancer program no desire to quit still searching for Psych provider Stable on current medication regimen and We are prescribing these medicines in the interim Colorectal screening was completed this year, 5 yr surveilance Left Elbow flexion pain and positive phalens test. Pain from elbow down to the fingers. Referred to Mihai at [facility] G56.02 Of note, some information is being carried forward from prior records for informational purposes only and is being cited so that efficiency, safety and quality of the patient's care is not compromised This note was prepared using voice recognition software and direct typing Please excuse inadvertent superintendent plant protection or typing errors, or uncorrected word substitutions Although every attempt has been made by the provider to proofread this document, occasional misspellings and typographical errors may still be present Due to the previous pandemic, and the use of personal protective equipment (PPE) This may decrease voice recognition accuracy Inadvertent superintendent plant protection errors may occur 05/28/2025 Vitamin B12 deficiency anemia, unspecified (ICD-10 - D51.9) Acute Concerns/Problem List: 05/28/2025 Overall he is well Labs reviewed Low-dose CT 05/2025 unremarkable Annual surveillance through [facility] lung cancer program no desire to quit smoking still searching for Psych provider Stable on current medication regimen and We are prescribing these medicines in the interim Colorectal screening was completed this year, 5 yr surveilance Discussed weight loss medications and visceral fat And criteria Of note, some information is being carried forward from prior records for informational purposes only and is being cited so that efficiency, safety and quality of the patient's care is not compromised This note was prepared using voice recognition software and direct typing Please excuse inadvertent superintendent plant protection or typing errors, or uncorrected word substitutions Although every attempt has been made by the provider to proofread this document, occasional misspellings and typographical errors may still be present Due to the previous pandemic, and the use of personal protective equipment (PPE) This may decrease voice recognition accuracy Inadvertent superintendent plant protection errors may occur 2025 Vitamin B12 deficiency anemia, unspecified (ICD-10 - D51.9) Acute Concerns/Problem List: 2025 Chronic conditions are stable mental health is stable Low-dose CT 05/2025 unremarkable Annual surveillance through [facility] lung cancer program no desire to [...] software and direct typing Please excuse inadvertent superintendent plant protection or typing errors, or uncorrected word substitutions Although every attempt has been made by the provider to proofread this document, occasional misspellings and typographical errors may still be present Due to the previous pandemic, and the use of personal protective equipment (PPE) This may decrease voice recognition accuracy Inadvertent superintendent plant protection errors may occur 05/28/2025 Abnormal TSH (ICD-10 - R79.89) Acute Concerns/Problem List: 05/28/2025 Overall he is well Labs reviewed Low-dose CT 05/2025 unremarkable Annual surveillance through [facility] lung cancer program no desire to quit smoking still searching for Psych provider Stable on current medication regimen and We are prescribing these medicines in the interim Colorectal screening was completed this year, 5 yr surveilance Discussed weight loss medications and visceral fat And criteria Of note, some information is being carried forward from prior records for informational purposes only and is being cited so that efficiency, safety and quality of the patient's care is not compromised This note was prepared using voice recognition software and direct typing Please excuse inadvertent superintendent plant protection or typing errors, or uncorrected word substitutions Although every attempt has been made by the provider to proofread this document, occasional misspellings and typographical errors may still be present Due to the previous pandemic, and the use of personal protective equipment (PPE) This may decrease voice recognition accuracy Inadvertent superintendent plant protection errors may occur 03/11/2025 Abnormal TSH (ICD-10 - R79.89) Acute Concerns/Problem List: 03/11/2025 Overall he is well _update labs Low-dose CT 05/2024 unremarkable Annual surveillance through [facility] lung cancer program no desire to quit still searching for Psych provider Stable on current medication regimen and We are prescribing these medicines in the interim Colorectal screening was completed this year, 5 yr surveilance Left Elbow flexion pain and positive phalens test. Pain from elbow down to the fingers. Referred to Mihai at [place] [facility] G56.02 Of note, some information is being carried forward from prior records for informational purposes only and is being cited so that efficiency, safety and quality of the patient's care is not compromised This note was prepared using voice recognition software and direct typing Please excuse inadvertent superintendent plant protection or typing errors, or uncorrected word substitutions Although every attempt has been made by the provider to proofread this document, occasional misspellings and typographical errors may still be present Due to the previous pandemic, and the use of personal protective equipment (PPE) This may decrease voice recognition accuracy Inadvertent superintendent plant protection errors may occur 2025 Abnormal TSH (ICD-10 - R79.89) Acute Concerns/Problem List: 2025 Chronic conditions are stable mental health is stable Low-dose CT 05/2025 unremarkable Annual surveillance through [facility] lung cancer program no desire to [...] software and direct typing Please excuse inadvertent superintendent plant protection or typing errors, or uncorrected word substitutions Although every attempt has been made by the provider to proofread this document, occasional misspellings and typographical errors may still be present Due to the previous pandemic, and the use of personal protective equipment (PPE) This may decrease voice recognition accuracy Inadvertent superintendent plant protection errors may occur 2025 Encounter for examination of blood pressure without abnormal findings (ICD-10 - Z01.30) Acute Concerns/Problem List: 2025 Chronic conditions are stable mental health is stable Low-dose CT 05/2025 unremarkable Annual surveillance through [facility] lung cancer program no desire to [...] software and direct typing Please excuse inadvertent superintendent plant protection or typing errors, or uncorrected word substitutions Although every attempt has been made by the provider to proofread this document, occasional misspellings and typographical errors may still be present Due to the previous pandemic, and the use of personal protective equipment (PPE) This may decrease voice recognition accuracy Inadvertent superintendent plant protection errors may occur 05/28/2025 Encounter for examination of blood pressure without abnormal findings (ICD-10 - Z01.30) Acute Concerns/Problem List: 05/28/2025 Overall he is well Labs reviewed Low-dose CT 05/2025 unremarkable Annual surveillance through [facility] lung cancer program no desire to quit smoking still searching for Psych provider Stable on current medication regimen and We are prescribing these medicines in the interim Colorectal screening was completed this year, 5 yr surveilance Discussed weight loss medications and visceral fat And criteria Of note, some information is being carried forward from prior records for informational purposes only and is being cited so that efficiency, safety and quality of the patient's care is not compromised This note was prepared using voice recognition software and direct typing Please excuse inadvertent superintendent plant protection or typing errors, or uncorrected word substitutions Although every attempt has been made by the provider to proofread this document, occasional misspellings and typographical errors may still be present Due to the previous pandemic, and the use of personal protective equipment (PPE) This may decrease voice recognition accuracy Inadvertent superintendent plant protection errors may occur 12/22/2024 Acute Concerns/Problem List: 12/22/2024 Overall he is well, Low-dose CT 05/2024 unremarkable Annual surveillance through [facility] lung cancer program no desire to [...] software and direct typing Please excuse inadvertent superintendent plant protection or typing errors, or uncorrected word substitutions Although every attempt has been made by the provider to proofread this document, occasional misspellings and typographical errors may still be present Due to the previous pandemic, and the use of personal protective equipment (PPE) This may decrease voice recognition accuracy Inadvertent superintendent plant protection errors may occur Plan Of Treatment Pending Test Test Name Order Date 25OH VITAMIN D 04/25/2022 25OH VITAMIN D 12/05/2023 CBC (COMPLETE BLOOD COUNT) 12/05/2023 CBC (COMPLETE BLOOD COUNT) 04/25/2022 COMPREHENSIVE METABOLIC PANEL 04/25/2022 COMPREHENSIVE METABOLIC PANEL 12/05/2023 HEMOGLOBIN A1C 12/05/2023 HEMOGLOBIN A1C 04/25/2022 LIPID PANEL 06/19/2021 LIPID PANEL 04/25/2022 LIPID PANEL 12/05/2023 PSA, SCREEN 04/25/2022 PSA, SCREEN 12/05/2023 TSH 12/05/2023 TSH 04/25/2022 URINALYSIS W/REFLEX CULTURE 12/05/2023 LIPID PANEL, STANDARD 03/11/2025 COMPREHENSIVE METABOLIC PANEL 03/11/2025 CBC (INCLUDES DIFF/PLT) 03/11/2025 URINALYSIS, COMPLETE 03/11/2025 HEMOGLOBIN A1c 03/11/2025 VITAMIN B12 03/11/2025 PSA (FREE AND TOTAL) 03/11/2025 T4, FREE 03/11/2025 TSH W/REFLEX TO FT4 03/11/2025 VITAMIN D,25-OH,TOTAL,IA 03/11/2025 COMPLETE URINALYSIS 04/25/2022 CT Low Dose Lung Screening 04/25/2023 Future Test Test Name Order Date CBC (COMPLETE BLOOD COUNT) 06/13/2021 COMPREHENSIVE METABOLIC PANEL 06/13/2021 LIPID PANEL 06/13/2021 PSA, SCREEN 06/13/2021 COMPLETE URINALYSIS 06/13/2021 HEMOGLOBIN A1C 11/29/2022 LIPID PANEL 11/29/2022 25OH VITAMIN D 09/05/2023 CBC (COMPLETE BLOOD COUNT) WITH DIFF 12/2022 COMPREHENSIVE METABOLIC PANEL 09/05/2023 HEMOGLOBIN A1C 09/05/2023 LIPID PANEL 09/05/2023 PSA, SCREEN 09/05/2023 TSH WITH REFLEX TO FT4 09/05/2023 URINALYSIS W/REFLEX CULTURE 09/05/2023 Next Appt Details Provider Name:PERI FAJARDO, 12/21/2025 08:30:00 AM, [address] [place] [address] [address], [place], [address], Insurance Providers Payer Name Payer Address Payer Phone Subscriber Number Group Number Insured Name Patient Relationship to Insured Coverage Start Date [facility]age End Date [facility] [address] sneha bauer [id number] CATHRYN PUCKETT Self - patient is the insured Medical (General) History Medical History History ICD Code depression seasonal allergies hyperlipidemia
--- OUTSIDE RECORDS SUMMARY | 2025-08-27 16:43 | XMS_ITS | Clinical Summary ---
Author Organization [facility] Address [address] [place] [address] Care Team Providers Care Show Operations Supervisor Name Role Phone Sang Harmon MD Primary Care Provider [phone] Allergies No known active allergies Medications Medication Sig Dispensed Refills Start Date End Date Status Albuterol Sulfate, sensor, 108 (90 Base) MCG/ACT AEPB Inhale 1 puff into the lungs. 0 Active atorvastatin (LIPITOR) tablet 10 mg 0 07/16/2021 Active Advair HFA 115-21 MCG/ACT inhaler 0 06/29/2021 Active OLANZapine (ZyPREXA) 15 MG tablet Take 15 mg by mouth. 0 Active sertraline (ZOLOFT) 100 MG tablet 0 06/25/2021 Active B Complex Vitamins (Vitamin B Complex) TABS Take 1 tablet by mouth daily. 0 05/29/2021 Active Acetaminophen Extra Strength 500 MG tablet Take 1,000 mg by mouth 3 (three) times a day. 0 07/26/2021 Active meloxicam (MOBIC) 15 MG tablet Take 1 tablet (15 mg total) by mouth daily. 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 07/21/2021 Family History Medical History Relation Name Comments Diabetes Father Relation Name Status Comments Father Social History Tobacco Use Types Packs/Day Years Used Date Smoking Tobacco: Never Assessed Sex and Gender Information Value Date Recorded Sex Assigned at Not on file Gender Identity Not on file Sexual Orientation Not on file Job Start Date Occupation Industry Not on file Not on file Not on file Last Filed Vital Signs Vital Sign Reading Time Taken Comments Blood Pressure - - Pulse - - Temperature - - Respiratory Rate - - Oxygen Saturation - - Inhaled Oxygen Concentration - - Weight 76.2 kg (168 lb) 07/21/2021 2:29 PM EDT Height 170.2 cm (5' 7 ) 07/21/2021 2:29 PM EDT Body Mass Index 26.31 07/21/2021 2:29 PM EDT Plan of Treatment Health Maintenance Due Date Last Done Comments Hepatitis C Screening 1961 COVID-19 Vaccine (#1) 02/23/1962 Depression Screening 1973 BMI Counseling 1979 Preventative Health Evaluation 1979 DTap / Tdap / Td (1 - Tdap) 1980 Colon Cancer Screening (Colonoscopy) 2006 Shingrix-Zoster Vaccine (1 of 2) 2011 Influenza Vaccine (#1) 2025 RSV Adult > 60+ Yrs or Pregn ant (1 - 1-dose 75+ series) 2036 Hepatitis B Vaccines Aged Out No long er eligible based on patient's age to complete this topic Pneumococcal Vaccine Aged Out No long er eligible based on patient's age to complete this topic RSV Ped < 20 months Aged Out No longe r eligible based on patient's age to complete this topic Care Teams Show Operations Supervisor Relationship Specialty Start Date End Date Sang Harmon MD [address] [place] [id number] PCP - General Internal Medicine 07/13/21
== END 2025-08-27 15:06 | disposition home or self-care (01) ==
LOC: HO.NEURO 15:05
PROVIDERS: PCP Internal Medicine
DX: R20.2 Paresthesia of skin (principal); R20.0 Anesthesia of skin
CPT/HCPCS: 95886; 95909

== ENCOUNTER → 2025-08-27 15:25 | Outpatient (BNV) | payer OTHER, SELFPAY | PROVIDERS: PCP Internal Medicine; Visit Provider Physical Medicine & Rehabilitation | DX: R20.0 Anesthesia of skin (principal) | CPT/HCPCS: 95886; 95909 ==